=== PATIENT | female | born 1985 | race Caucasian/White ===

== ENCOUNTER 2016-08-10 11:03 | Emergency (ER) | payer OTHER ==
[2016-08-10 11:14] VITALS: BP 126/85
--- NOTE | 2016-08-10 12:07 | UC ---
Skin Complaint HPI - HPI Summary HPI Summary: TICK BITE ON RIGHT UPPER THIGH SINCE YESTERDAY, RASH DEVELOPED WELL BURN - History of Current Complaint Chief Complaint: UCLowerExtremity Time Seen by Provider: 08/10/16 11:09 Stated Complaint: LEG COMPLAINT Hx Obtained From: Patient Hx Last Menstrual Period: 08/06/16 Onset/Duration: Sudden Onset, Lasting Days, Still Present Skin Exposure Onset/Duration: Days Ago Onset Severity: Mild Current Severity: Mild Location: Discrete - RIGHT UPPER THIGH Character: Redness Aggravating: Nothing Alleviating: Nothing Associated Signs & Symptoms: Positive: Rash. Negative: Fever, Tenderness, Red Streaks Related History: Possible Reaction to: Insect - Allergy/Home Medications Allergies/Adverse Reactions: Allergies Allergy/AdvReac Type Severity Reaction Status Date / Time No Known Allergies Allergy Verified 08/10/16 11:14 Review of Systems Constitutional: Negative Skin: Rash Eyes: Negative ENT: Negative Respiratory: Negative Cardiovascular: Negative Gastrointestinal: Negative Genitourinary: Negative Motor: Negative Neurovascular: Negative Musculoskeletal: Negative Neurological: Negative Psychological: Negative All Other Systems Reviewed And Are Negative: Yes PMH/Surg Hx/FS Hx/Imm Hx Previously Healthy: Yes Endocrine History Of: Denies: Diabetes, Thyroid Disease, Hyperthyroidism, Hypothyroidism, Dyslipidemia Cardiovascular History Of: Denies: Cardiac Disorders, Hypertension, Pacemaker/ICD, Myocardial Infarction , Congestive Heart Failure, Atrial Fibrillation, Deep Vein Thrombosis, Bleeding Disorders Respiratory History Of: Denies: COPD, Asthma, Bronchitis, Pneumonia, Pulmonary Embolism GI/ History Of: Denies: Gastroesophageal Reflux, Ulcer, Gastrointestinal Bleed, Gall Bladder Disease, Kidney Stones, Diverticulitis, Renal Disease, Urosepsis Neurological History Of: Denies: TIA, CVA, Dementia, Seizures, Migraine Psychological History Of: Reports: Anxiety, Depression - ON MEDICATION, Bipolar Disorder Denies: Schizophrenia, Post Traumatic Stress Disorder Cancer History Of: Denies: Lung Cancer, Colorectal Cancer, Breast Cancer, Prostate Cancer, Cervical Cancer Other History Of: Negative For: HIV, Hepatitis B, Hepatitis C, Anticoagulant Therapy - Surgical History Surgical History: Yes Surgery Procedure, Year, and Place: 2 DAYS OLD-REMOVED EXTRA THUMB. 2009 EMERGENCY D&C, [facility] – [place]. TUbal ligation - Family History Known Family History: Positive: None, Unknown, Other - Negative malignant hyperthermia, negative adverse anesthesia reaction Negative: Cardiac Disease, Hypertension - Social History Occupation: Employed Full-time Lives: With Family Alcohol Use: Occasionally Alcohol Amount: Weekends, unk amount Substance Use Type: None Smoking Status (MU): Current Every Day Smoker Type: Cigarettes Amount Used/How Often: 1/2 PPD Physical Exam Triage Information Reviewed: Yes Appearance: Well-Appearing Vital Signs: Initial Vital Signs Temp 99.9 F 08/10/16 11:08 Pulse 103 08/10/16 11:08 Resp 18 08/10/16 11:08 BP 126/85 08/10/16 11:08 Pulse Ox 100 08/10/16 11:08 Vital Signs Reviewed: Yes Eye Exam: Normal ENT Exam: Normal ENT: Positive: Normal ENT inspection, Hearing grossly normal, TMs normal Dental Exam: Normal Neck exam: Normal Respiratory Exam: Normal Respiratory: Positive: Chest non-tender, Lungs clear, Normal breath sounds, No respiratory distress, No accessory muscle use Cardiovascular Exam: Normal Cardiovascular: Positive: RRR, No Murmur, Pulses Normal Abdominal Exam: Normal Musculoskeletal Exam: Normal Musculoskeletal: Positive: Strength Intact, ROM Intact Neurological Exam: Normal Psychological Exam: Normal Skin: Positive: rashes - ERRETHEMA RIGHT SUPERIOR THIGH Course/Dx - Differential Diagnoses - Skin Complaint Differential Diagnoses: Impetigo, Tick Born Illness, Tinea - Diagnoses Provider Diagnoses: TICK BITE PROPHYLAXIS Discharge - Discharge Plan Condition: Stable Disposition: HOME Prescriptions: DOXYcycline CAP(*) [DOXYcycline 100MG CAP(*)] 100 mg PO ONCE #2 cap Patient Education Materials: Tick Bite (ED) Forms: *Work Release Referrals: Alexandrea Luz MD [Primary Care Provider] -
== END 2016-08-10 12:02 | disposition home or self-care (01) ==
LOC: UCEAST 11:03
DX: S70.361A Insect bite (nonvenomous), right thigh, initial encounter (principal); W57.XXXA Bitten or stung by nonvenomous insect and other nonvenomous arthropods, initial encounter; F17.210 Nicotine dependence, cigarettes, uncomplicated
CPT/HCPCS: 99211; G0463

== ENCOUNTER → 2016-09-12 12:00 | Emergency (ER) | payer OTHER ==
[2016-09-12 12:09] VITALS: BP 136/87
--- NOTE | 2016-09-12 13:47 | ED ---
Luis Carpenter Rebecca, scribed for Yun Rausch MD on 09/12/16 at 1312 . Throat Pain/Nasal Congestion - HPI Summary HPI Summary: Pt is a 31 y/o F who presents to ED c/o R eyelid swelling and irritation. Sx began suddenly at 0800 when the pt woke up and have been constant since onset. Pt c/o swelling and pruritis of the right eyelid and pain in the tear duct. Associated pain is currently moderate, ranked 5/10. Sx aggravated and alleviated by nothing. Denies eye discharge, FB sensation. Reports she was fishing yesterday and personally handling fish. - History of Current Complaint Chief Complaint: EDEyeProblem Time Seen by Provider: 09/12/16 13:00 Hx Obtained From: Patient Onset/Duration: Sudden Onset, Still Present Severity: Moderate Associated Signs And Symptoms: Positive: Negative. Negative: FB Sensation - Allergies/Home Medications Allergies/Adverse Reactions: Allergies Allergy/AdvReac Type Severity Reaction Status Date / Time No Known Allergies Allergy Verified 08/10/16 11:14 PMH/Surg Hx/FS Hx/Imm Hx Endocrine/Hematology History: Reports: Hx Anemia - ANEMIC DURING -FINE RECENTLY Denies: Hx Anticoagulant Therapy, Hx Diabetes, Hx Thyroid Disease Cardiovascular History: Denies: Hx Congestive Heart Failure, Hx Deep Vein Thrombosis, Hx Hypertension , Hx Myocardial Infarction, Hx Pacemaker/ICD Respiratory History: Denies: Hx Asthma, Hx Chronic Obstructive Pulmonary Disease (COPD), Hx Lung Cancer, Hx Pneumonia, Hx Pulmonary Embolism GI History: Denies: Hx Gall Bladder Disease, Hx Gastrointestinal Bleed, Hx Ulcer, Hx Urosepsis History: Denies: Hx Kidney Stones, Hx Renal Disease, Other Problems/Disorders Sensory History: Denies: Hx Contacts or Glasses, Hx Hearing Aid Opthamlomology History: Denies: Hx Contacts or Glasses Neurological History: Denies: Hx Dementia, Hx Migraine, Hx Seizures, Hx Transient Ischemic Attacks (TIA) Psychiatric History: Reports: Hx Anxiety, Hx Depression - ON MEDICATION, Hx Bipolar Disorder, Hx Substance Abuse, Other Psychiatric Issues/Disorders - bipolar, substance abuse Denies: Hx Schizophrenia - Surgical History Surgery Procedure, Year, and Place: 2 DAYS OLD-REMOVED EXTRA THUMB. 2009 [place] [facility] [place] TUbal [place] Hx Anesthesia Reactions: No - Immunization History Date of Tetanus Vaccine: Unk Date of Influenza Vaccine: None Infectious Disease History: No Infectious Disease History: Reports: History Other Infectious Disease - VIRAL MENINGITIS Denies: Hx Clostridium Difficile, Hx Hepatitis, Hx Human Immunodeficiency Virus (HIV), Hx of Known/Suspected MRSA, Hx Shingles, Hx Tuberculosis, Hx Known/ Suspected VRE, Traveled Outside the [place] in Last 30 Days - Family History Known Family History: Positive: Other - Negative malignant hyperthermia, negative adverse anesthesia reaction Negative: Cardiac Disease, Hypertension, Diabetes - Social History Lives: With Family Alcohol Use: Occasionally Alcohol Amount: Weekends, unk amount Hx Substance Use: No Substance Use Type: Reports: None Hx Tobacco Use: Yes Smoking Status (MU): Current Every Day Smoker Type: Cigarettes Amount Used/How Often: 1/2 PPD Review of Systems Positive: Other - Moderate pain in the R tear duct (/10); Denies FB sensation. Negative: Drainage Positive: Other - R eyelid swelling and pruritis All Other Systems Reviewed And Are Negative: Yes Physical Exam - Summary Physical Exam Summary: General: Well appearing, no pain distress Skin: Warm, Skin Color Reflects Adequate Perfusion, Dry Eyes: EOMI, TITO, Little punctate region on the lateral region of the R eye ENT: Pharynx normal, TMs normal Neck: Supple, nontender Respiratory: CTA, breath sounds present, no rhonchi, no wheezes, no rales Cardiovascular: RRR, no murmur, no rub, no gallop Abdomen: Soft, nontender, Non-distended, no guarding, no rebound Bowel: Present Musculoskeletal: SIMRAN, No edema Neuro: Sensory/motor intact, A&Ox3, CN intact 2-12 Psych: Affect/mood appropriate Triage Information Reviewed: Yes Vital Signs On Initial Exam: Initial Vitals Temp Pulse Resp BP Pulse Ox 97.8 F 97 20 136/87 100 09/12/16 12:07 09/12/16 12:07 09/12/16 12:07 09/12/16 12:07 09/12/16 12:07 Vital Signs Reviewed: Yes Diagnostics - Vital Signs Vital Signs Temp Pulse Resp BP Pulse Ox 09/12/16 12:09 98.0 F 100 20 136/87 100 09/12/16 12:07 97.8 F 97 20 136/87 100 - Laboratory Lab Statement: Any lab studies that have been ordered have been reviewed, and results considered in the medical decision making process. EENT Course/Dx - Course Assessment/Plan: 31 yo female with right upper lid itching (small punctate lesion seen on bottom edge of lid) extra ocular muscles intact flourescein exam done without corneal abrasion. Pt given benadryl, there is mild swelling to lid , pt informed that lid edema may increase and that if she can't move her eyes she needs to return. Pt has decreased access to care and so augmentin was prescribed in case edema and erythema increase and this is an early periorbital cellulitis - Diagnoses Provider Diagnoses: Insect bite Discharge - Discharge Plan Condition: Stable Disposition: HOME Prescriptions: Amoxicillin/Clavulanate TAB* [Augmentin TAB 875*] 875 mg PO BID #14 tab diPHENhydraMINE PO* [Benadryl PO 50 MG CAP*] 50 mg PO Q6H PRN #20 cap PRN Reason: Itching Patient Education Materials: Insect Bite or Sting (ED) Forms: *Work Release Referrals: Alexandrea Luz MD [Primary Care Provider] - 2 Days The documentation as recorded by the Luis diaz Rebecca accurately reflects the service I personally performed and the decisions made by , Yun Rausch MD.
== END | disposition home or self-care (01) ==
LOC: ED 12:00
DX: S00.86XA Insect bite (nonvenomous) of other part of head, initial encounter (principal); W57.XXXA Bitten or stung by nonvenomous insect and other nonvenomous arthropods, initial encounter; Y93.9 Activity, unspecified; Y92.9 Unspecified place or not applicable; Y99.9 Unspecified external cause status
CPT/HCPCS: 99282

== ENCOUNTER 2016-10-16 19:44 | Emergency (ER) | payer SELFPAY ==
[2016-10-16 19:51] VITALS: BP 122/77
[2016-10-16] MEDS ORDERED: Ibuprofen TAB* 600 MG PO ONE (20:44)
--- NOTE | 2016-10-16 20:57 | UC ---
Lower Extremity/Ankle HPI - HPI Summary HPI Summary: 31 yo female states she was drinking and kicked a wall about 3 hours ago pain right foot and miller hx r 4th MT fx about a yr ago - History of Current Complaint Chief Complaint: UCLowerExtremity Stated Complaint: TOE OR FOOT INJURY Time Seen by Provider: 10/16/16 20:41 Hx Obtained From: Patient Hx Last Menstrual Period: 3 WEEKS AGO Onset/Duration: Sudden Onset, Lasting Hours Severity Initially: Moderate Severity Currently: Moderate Pain Intensity: 6 Pain Scale Used: 0-10 Numeric Aggravating Factor(s): Standing, Ambulation Alleviating Factor(s): Rest Able to Bear Weight: Yes - Allergies/Home Medications Allergies/Adverse Reactions: Allergies Allergy/AdvReac Type Severity Reaction Status Date / Time No Known Allergies Allergy Verified 10/16/16 19:51 Home Medications: Home Medications Ibuprofen TAB* [Advil TAB*] 400 mg PO PRN 10/16/16 [History] PMH/Surg Hx/FS Hx/Imm Hx Previously Healthy: Yes Other History Of: Negative For: HIV, Hepatitis B, Hepatitis C, Anticoagulant Therapy - Surgical History Surgical History: Yes Surgery Procedure, Year, and Place: 2 DAYS OLD-REMOVED EXTRA THUMB. 2009 EMERGENCY D&C, [facility] [place] TUbal ligation - Family History Known Family History: Positive: Other - Negative malignant hyperthermia, negative adverse anesthesia reaction Negative: Cardiac Disease, Hypertension, Diabetes - Social History Alcohol Use: Occasionally Alcohol Amount: Weekends, unk amount Substance Use Type: None Smoking Status (MU): Current Every Day Smoker Type: Cigarettes Amount Used/How Often: 1/2 PPD Review of Systems Constitutional: Negative Skin: Negative Eyes: Negative ENT: Negative Respiratory: Negative Cardiovascular: Negative Gastrointestinal: Negative Genitourinary: Negative Motor: Negative Neurovascular: Negative Musculoskeletal: Arthralgia Neurological: Negative Psychological: Negative All Other Systems Reviewed And Are Negative: Yes Physical Exam Triage Information Reviewed: Yes Appearance: Well-Appearing, No Pain Distress, Well-Nourished Vital Signs: Initial Vital Signs Temp 98.6 F 10/16/16 19:46 Pulse 115 10/16/16 19:46 Resp 16 10/16/16 19:46 BP 122/77 10/16/16 19:46 Pulse Ox 100 10/16/16 19:46 Eye Exam: Normal ENT: Positive: Hearing grossly normal. Negative: Pharyngeal erythema, Nasal congestion, Nasal drainage, Trismus, Muffled/hoarse voice Dental: Negative: Abscess @ Neck: Positive: Supple, Nontender Respiratory: Positive: Lungs clear, Normal breath sounds, No respiratory distress, No accessory muscle use Cardiovascular: Positive: RRR, No Murmur Musculoskeletal: Positive: ROM Intact, Other: - antalgic gait/see images Neurological: Positive: Alert Psychological Exam: Normal Skin Exam: Normal Lower Extremity Course/Dx - Differential Dx/Diagnosis Provider Diagnoses: RIGHT FOOT CONTUSION. RIGHT LEG STRAIN Discharge - Discharge Plan Condition: Stable Disposition: HOME Patient Education Materials: Foot Contusion (ED) Forms: *Work Release Referrals: Alexandrea Luz MD [Primary Care Provider] - 4 Days Additional Instructions: REST ELEVATE ICE CAM BOOT CRUTCHES RECHECK LATER THIS WEEK IF NOT IMPROVED ADVIL FOR PAIN Images Feet (Multiple View): 1 - tender 3/4/5 MTP joints 2 - tender here 3 - tender 4 - tender
--- NOTE | 2016-10-16 21:30 | RAD ---
INDICATION: Right lower leg injury. TECHNIQUE: 2 views of the right lower leg were obtained. FINDINGS: The bones are normal alignment. No fracture is seen. IMPRESSION: NO EVIDENCE OF FRACTURE.
--- NOTE | 2016-10-16 21:32 | RAD ---
INDICATION: Right foot injury. TECHNIQUE: 3 views of the right foot were obtained. FINDINGS: There is soft tissue swelling over the dorsal aspect of the foot. No fracture is seen. Joint spaces appear maintained. IMPRESSION: SOFT TISSUE SWELLING, NO FRACTURE IS SEEN.
== END 2016-10-16 21:58 | disposition home or self-care (01) ==
LOC: UCEAST 19:44
DX: S90.31XA Contusion of right foot, initial encounter (principal); S86.911A Strain of unspecified muscle(s) and tendon(s) at lower leg level, right leg, initial encounter; W22.09XA Striking against other stationary object, initial encounter; Y93.9 Activity, unspecified; Y92.9 Unspecified place or not applicable; F17.210 Nicotine dependence, cigarettes, uncomplicated
CPT/HCPCS: 99213; A9270-GY; G0463

== ENCOUNTER 2017-01-09 11:55 | Emergency (ER) | payer SELFPAY ==
[2017-01-09 12:43] VITALS: BP 124/69
--- NOTE | 2017-01-09 13:18 | UC ---
Throat Pain/Nasal Ricardo HPI - HPI Summary HPI Summary: L-sided ST radiating to ear with chills, fatigue, and malaise starting this morning. Was around step son in the last couple days. No know fevers or vomiting. - History of Current Complaint Hx Obtained From: Patient Hx Last Menstrual Period: 2 weeks ago ?: No Onset/Duration: Gradual Onset, Lasting Hours Severity: Moderate Cough: None Associated Signs & Symptoms: Negative: Hoarseness, Nasal Discharge <Margareth Ortiz - Last Filed: 01/09/17 13:13> <Bria Edwards - Last Filed: 01/09/17 13:28> - History of Current Complaint Chief Complaint: UCGeneralIllness Stated Complaint: SWOLLEN GLANDS And aches Time Seen by Provider: 01/09/17 12:54 - Allergies/Home Medications Allergies/Adverse Reactions: Allergies Allergy/AdvReac Type Severity Reaction Status Date / Time No Known Allergies Allergy Verified 01/09/17 12:43 PMH/Surg Hx/FS Hx/Imm Hx Previously Healthy: Yes Other History Of: Negative For: HIV, Hepatitis B, Hepatitis C, Anticoagulant Therapy - Surgical History Surgical History: Yes Surgery Procedure, Year, and Place: 2 DAYS OLD-REMOVED EXTRA THUMB. 2009 EMERGENCY D[place], [facility] [place] TUbal [place] - Family History Known Family History: Positive: Other - Negative malignant hyperthermia, negative adverse anesthesia reaction Negative: Cardiac Disease, Hypertension, Diabetes - Social History Lives: With Family Alcohol Use: Occasionally Alcohol Amount: Weekends, unk amount Substance Use Type: None Smoking Status (MU): Current Every Day Smoker Type: Cigarettes Amount Used/How Often: 1/2ppd Length of Time of Smoking/Using Tobacco: 18 years Have You Smoked in the Last Year: Yes <Margareth Ortiz - Last Filed: 01/09/17 13:13> Review of Systems Constitutional: Chills, Fatigue Skin: Negative Eyes: Negative ENT: Sore Throat Respiratory: Negative Cardiovascular: Negative Gastrointestinal: Negative Genitourinary: Negative Motor: Negative Neurovascular: Negative Musculoskeletal: Negative Neurological: Negative Psychological: Negative Is Patient Immunocompromised?: No All Other Systems Reviewed And Are Negative: Yes <Margareth Ortiz - Last Filed: 01/09/17 13:13> Physical Exam Triage Information Reviewed: Yes Appearance: Well-Nourished, Pain Distress - mild Vital Signs: Initial Vital Signs Temp 97.8 F 09/18/17 12:37 Pulse 95 01/09/17 12:37 Resp 18 01/09/17 12:37 BP 124/69 01/09/17 12:37 Pulse Ox 100 01/09/17 12:37 Vital Signs Reviewed: Yes Eye Exam: Normal Eyes: Positive: Conjunctiva Clear ENT: Positive: Hearing grossly normal, Pharyngeal erythema - L-sided, TMs normal Dental Exam: Normal Neck: Positive: Supple, Enlarged Nodes @ - L tonsillar Respiratory Exam: Normal Respiratory: Positive: Chest non-tender, Lungs clear, Normal breath sounds, No respiratory distress, No accessory muscle use Cardiovascular Exam: Normal Cardiovascular: Positive: RRR, No Murmur Musculoskeletal Exam: Normal Neurological Exam: Normal Neurological: Positive: Alert Psychological Exam: Normal Skin Exam: Normal <Margareth Ortiz - Last Filed: 01/09/17 13:13> Vital Signs: Initial Vital Signs Temp 97.8 F 01/09/17 12:37 Pulse 95 01/09/17 12:37 Resp 18 01/09/17 12:37 BP 124/69 01/09/17 12:37 Pulse Ox 100 01/09/17 12:37 <Bria Edwards - Last Filed: 01/09/17 13:28> Throat Pain/Nasal Course/Dx - Differential Dx/Diagnosis Provider Diagnoses: strep throat <Margareth Ortiz - Last Filed: 01/09/17 13:13> Discharge <Margareth Ortiz - Last Filed: 01/09/17 13:13> <Bria Edwards - Last Filed: 01/09/17 13:28> - Discharge Plan Condition: Stable Disposition: HOME Prescriptions: Amoxicillin PO (*) [Amoxicillin 400 MG/5 ML SUSP*] 800 mg PO BID #200 ml Patient Education Materials: Strep Throat (ED) Referrals: Alexandrea Luz MD [Primary Care Provider] - Additional Instructions: Call or return if you have significant worsening or if you stop being able to breathe or swallow normally. Attestation Statement User Type: Provider - I was available for consult. This patient was seen by the [facility]. The patient was not presented to, seen by, or examined by me. -Simeonj <Bria Edwards - Last Filed: 01/09/17 13:28>
== END 2017-01-09 13:17 | disposition home or self-care (01) ==
LOC: UCEAST 11:55
DX: J02.0 Streptococcal pharyngitis (principal); F17.210 Nicotine dependence, cigarettes, uncomplicated
CPT/HCPCS: 87651; 99212; G0463

== ENCOUNTER 2017-04-06 14:27 | Emergency (ER) | payer BC ==
[2017-04-06 15:59] LABS: Hematocrit 42 % (35-47); Hemoglobin 14.4 g/dl (12.0-16.0); Mean Corpuscular HGB Conc 34 g/dl (31-36); Mean Corpuscular Hemoglobin 33 pg (27-31); Mean Corpuscular Volume 95 fL (80-97); Mean Platelet Volume 7 um3 (7.4-10.4); Red Cell Distribution Width 13 % (10.5-15); White Blood Count 3.4 10^3/ul (3.5-10.8)
[2017-04-06 16:00] LABS: Add Diff/Slide Review? Slide Review Added; Comments Flag Yes
[2017-04-06 16:11] LABS: ALT 16 U/L (7-52); AST 27 U/L (13-39); Albumin 4.3 g/dL (3.2-5.2); Alkaline Phosphatase 45 U/L (34-104); Anion Gap 7 mmol/L (2-11); BUN/Creatinine Ratio 11.8 (8-20); Blood Urea Nitrogen 9 mg/dL (6-24); CO2 Carbon Dioxide 26 mmol/L (22-32); Chloride 101 mmol/L (101-111); EGFR African American 115.7 (>60); Globulin 3.1 g/dL (2-4); Glucose 106 mg/dL (70-100); Lipase 14 U/L (11.0-82.0); Potassium 2.8 mmol/L (3.5-5.0); Sodium 134 mmol/L (133-145); Total Protein 7.4 g/dL (6.4-8.9)
[2017-04-06] MEDS ORDERED: Potassium Chloride LIQUID* 20 MEQ PACKET PO ONE ×2 (17:34→17:57)
[2017-04-06] MEDS ORDERED: Pantoprazole IV* 40 MG IV ONE (17:39)
[2017-04-06] MEDS ORDERED: NS 0.9% 1000 ML* 1,000 ML IV SCH (17:45)
[2017-04-06 17:59] LABS: FIO2 10
[2017-04-06 18:04] LABS: PCO2 Arterial 27 mmHg (35-45)
[2017-04-06 18:20] LABS: Magnesium 1.7 mg/dL (1.9-2.7)
[2017-04-06 20:00] LABS: Urine Bacteria Absent (Absent); Urine Bilirubin Negative (Negative); Urine Glucose Negative (Negative); Urine Nitrite Negative (Negative)
[2017-04-06 20:59] LABS: PCO2 Arterial 22 mmHg (35-45)
[2017-04-06] MEDS ORDERED: Acetaminophen TAB* 325 MG ONE (22:14)
[2017-04-06] MEDS ORDERED: Acetaminophen TAB* 325 MG PO ONE (22:17)
[2017-04-06 22:40] VITALS: BP 130/76
--- NOTE | 2017-04-07 01:03 | ED ---
Darin Carpenter Angela, scribed for Daniel Mc on 04/06/17 at 2016 . Progress - Progress Note Progress Note: This pt was signed out by Dr. Cruz, pending disposition, awaiting repeat CO and potassium levels. Pt is a 31 y/o female presenting to [facility] for sudden onset of headache, nausea and vomiting starting yesterday. Pt was at work when it started and has been vomiting intermittently ever since. Pt will be discharged to home, in stable condition, with a diagnosis of carbon monoxide poisoning and headache. Re-Evaluation - Re-Evaluation First Eval Re-Evaluation Time: 22:13 Comment: I reviewed the lab results with the pt. Course/Dx - Course Course Of Treatment: Pt is a 31 y/o female presenting to [facility] for sudden onset of headache, nausea and vomiting starting yesterday. Pt was at work when it started and has been vomiting intermittently ever since. This pt was signed out by Dr. Cruz. Pt's repeat carbon monoxide level is less than 4. I reviewed the lab results with the pt. She will be discharged. Pt understands and agrees. Pt will be discharged to home, in stable condition, with a diagnosis of carbon monoxide poisoning and headache. - Diagnoses Provider Diagnoses: Carbon monoxide poisoning, Headache The documentation as recorded by the Darin diaz Angela accurately reflects the service I personally performed and the decisions made by me, Daniel Mc.
== END 2017-04-06 22:45 | disposition home or self-care (01) ==
LOC: ED 14:27
DX: T58.91XA Toxic effect of carbon monoxide from unspecified source, accidental (unintentional), initial encounter (principal); R51 Headache
CPT/HCPCS: 36415; 36600; 80053; 81003; 81015; 82375; 82803; 83690; 83735; 84132; 84702; 85025; 86141; 87493; 96374; 96375; 99284; A9270-GY

== ENCOUNTER 2017-09-02 01:20 | Emergency (ER) | payer SELFPAY ==
[2017-09-02 02:36] LABS: ABS Basophils 0 10^3/ul (0-0.2); ABS Eosinophils 0.1 10^3/ul (0-0.6); ABS Lymphocytes 2.1 10^3/ul (1.0-4.8); ABS Monocytes 0.5 10^3/ul (0-0.8); ABS Nucleated RBC 0 10^3/ul; Eosinophil % 0.9 % (0-6); Hematocrit 35 % (35-47); Hemoglobin 12.1 g/dl (12.0-16.0); Mean Corpuscular HGB Conc 35 g/dl (31-36); Mean Corpuscular Hemoglobin 32 pg (27-31); Mean Corpuscular Volume 92 fL (80-97); Mean Platelet Volume 7.7 um3 (7.4-10.4); Nucleated Red Blood Cells % 0; Platelet Count 255 10^3/ul (150-450); Red Blood Count 3.79 10^6/ul (4.0-5.4); Red Cell Distribution Width 13 % (10.5-15); White Blood Count 6.8 10^3/ul (3.5-10.8)
[2017-09-02] MEDS ORDERED: NS 0.9% 1000 ML* 1,000 ML IV ONE (02:59)
[2017-09-02] MEDS ORDERED: Ketorolac INJ* 30 MG/ML 1 ML VIAL IV PUSH ONE (03:59)
[2017-09-02 06:14] VITALS: BP 125/73
--- NOTE | 2017-09-02 06:29 | ED ---
Allan Carpenter Jennifer, scribed for Jakob Ramirez MD on 09/02/17 at 0238 . HPI Chest Pain - HPI Summary HPI Summary: The patient is a 32 year old female who presents with sudden onset chest pain for one hour. The patient reports it felt like there were stabbing needles down both arms and she isnt able to catch her breath. She complains of nausea, cough , and her entire body feeling like jello. Her chest pain is a constant 8/10 and radiates from the front to the back. She adds she can feel her heart beating in my eyeballs. Deep breaths worsen the pain. The patient states she usually gets chest pain when she runs. She had a previous stress test 1-2 years ago. The patient denies history of blood clots and taking control. - History of Current Complaint Chief Complaint: EDChestPainROMI Time Seen by Provider: 09/02/17 02:01 Hx Obtained From: Patient Hx Last Menstrual Period: 2 weeks ago Onset/Duration: Started Hours Ago - 1, Still Present Timing: Constant Initial Severity: Severe Current Severity: Severe Pain Intensity: 8 Pain Scale Used: 0-10 Numeric Chest Pain Location: Mid Sternal Chest Pain Radiates: Yes Chest Pain Radiates To:: Back Character: Other: - chest pain, stabbing needles down both arms, shortness of breath, nausea, cough, "body feels like jello" Aggravating Factor(s): Deep Breaths Alleviating Factor(s): Nothing Associated Signs and Symptoms: Positive: Other: - chest pain, stabbing needles down both arms, shortness of breath, nausea, cough, "body feels like jello" - Allergy/Home Medications Allergies/Adverse Reactions: Allergies Allergy/AdvReac Type Severity Reaction Status Date / Time No Known Allergies Allergy Verified 01/09/17 12:43 Home Medications: Home Medications NK [No Home Medications Reported] 09/02/17 [History Confirmed 09/02/17] PMH/Surg Hx/FS Hx/Imm Hx Endocrine/Hematology History: Reports: Hx Anemia - ANEMIC DURING -FINE RECENTLY Denies: Hx Anticoagulant Therapy, Hx Diabetes, Hx Thyroid Disease Cardiovascular History: Denies: Hx Congestive Heart Failure, Hx Deep Vein Thrombosis, Hx Hypertension , Hx Myocardial Infarction, Hx Pacemaker/ICD Respiratory History: Denies: Hx Asthma, Hx Chronic Obstructive Pulmonary Disease (COPD), Hx Lung Cancer, Hx Pneumonia, Hx Pulmonary Embolism GI History: Denies: Hx Gall Bladder Disease, Hx Gastrointestinal Bleed, Hx Ulcer, Hx Urosepsis History: Denies: Hx Kidney Stones, Hx Renal Disease, Other Problems/Disorders Sensory History: Denies: Hx Contacts or Glasses, Hx Hearing Aid Opthamlomology History: Denies: Hx Contacts or Glasses Neurological History: Denies: Hx Dementia, Hx Migraine, Hx Seizures, Hx Transient Ischemic Attacks (TIA) Psychiatric History: Reports: Hx Anxiety, Hx Depression - ON MEDICATION, Hx Bipolar Disorder, Hx Substance Abuse, Other Psychiatric Issues/Disorders - bipolar, substance abuse Denies: Hx Schizophrenia - Surgical History Surgery Procedure, Year, and Place: 2 DAYS OLD-REMOVED EXTRA THUMB. 2009 EMERGENCY D&C, [facility] – [place]. TUbal ligation Hx Anesthesia Reactions: No - Immunization History Date of Tetanus Vaccine: Unk Date of Influenza Vaccine: None Infectious Disease History: No Infectious Disease History: Reports: History Other Infectious Disease - VIRAL MENINGITIS Denies: Hx Clostridium Difficile, Hx Hepatitis, Hx Human Immunodeficiency Virus (HIV), Hx of Known/Suspected MRSA, Hx Shingles, Hx Tuberculosis, Hx Known/ Suspected VRE, Hx Known/Suspected VRSA, Traveled Outside the [place] in Last 30 Days - Family History Known Family History: Positive: Cardiac Disease - Grandfather of [place] in 60s , Other - Negative malignant hyperthermia, negative adverse anesthesia reaction Negative: Hypertension, Diabetes - Social History Alcohol Use: Occasionally Alcohol Amount: Weekends, unk amount Hx Substance Use: No Substance Use Type: Reports: None Hx Tobacco Use: Yes Smoking Status (MU): Current Every Day Smoker Type: Cigarettes Amount Used/How Often: 1/2ppd Length of Time of Smoking/Using Tobacco: 18 years Have You Smoked in the Last Year: Yes Review of Systems Positive: Chest Pain Positive: Shortness Of Breath, Cough Positive: Nausea Positive: Other - body "feels like jello" Neurological: Other - stabbing needles down both arms All Other Systems Reviewed And Are Negative: Yes Physical Exam - Summary Physical Exam Summary: GENERAL: ~Patient is a well developed and nourished F who is lying comfortable in the stretcher. ~Patient is not in any acute respiratory distress. HEAD AND FACE: Normocephalic EYES: PERRLA, EOMI x 2. EARS: Hearing grossly intact. MOUTH: Oropharynx within normal limits. NECK: Supple, trachea is midline, no adenopathy, no JVD, no carotid bruit. CHEST: Symmetric, tender to palpation in anterior mid sternal area. LUNGS: Clear to auscultation bilaterally. No wheezing or crackles. CVS: Regular rate and rhythm, S1 and S2 present, no murmurs or gallops appreciated. ABDOMEN: Soft, non-tender. Bowel sounds are normal. No abdominal abnormal pulsations. EXTREMITIES: Full ROM in all major joints, no edema, no cyanosis or clubbing. NEURO: Alert and oriented x 3. No acute neurological deficits. Speech is normal and follows commands. SKIN: Dry and warm Triage Information Reviewed: Yes Vital Signs On Initial Exam: Initial Vitals Temp Pulse Resp BP Pulse Ox 97.4 F 108 20 114/77 100 09/02/17 01:28 09/02/17 01:28 09/02/17 01:28 09/02/17 01:28 09/02/17 01:28 Vital Signs Reviewed: Yes Diagnostics - Vital Signs Vital Signs Temp Pulse Resp BP Pulse Ox 09/02/17 01:53 101 18 136/94 99 09/02/17 01:52 105 20 99 09/02/17 01:28 97.4 F 108 20 114/77 100 - Laboratory Result Diagrams: 09/02/17 02:28 09/02/17 02:28 Lab Statement: Any lab studies that have been ordered have been reviewed, and results considered in the medical decision making process. - Radiology CXR Xray Interpretation: No Acute Changes - No acute process. Radiology Interpretation Completed By: ED Physician - EKG 0138 Cardiac Rate: NL EKG Rhythm: Sinus Rhythm - 98 bpm 0619 Cardiac Rate: NL EKG Rhythm: Sinus Rhythm - 84 BPM Chest Pain Course/Dx - Course Course Of Treatment: The patient is a 32 y/o F who presents with chest pain. Her workup was remarkable for elevated lactic acid at 2.9. First troponin was negative. Second troponin was negative. D-dimer was negative. CXR shows no acute process. EKG1 showed NSR 98 bpm and EKG2 showed NSR 84 bpm. Lactic acid normalized to 1.0. The patient is diagnosed with chest pain and instructed to follow up with cardiology. - Diagnoses Provider Diagnoses: Chest pain Discharge - Sign-Out/Discharge Documenting (check all that apply): Discharge/Admit/Transfer - Discharge Plan Condition: Stable Disposition: HOME Patient Education Materials: Chest Pain (ED) Referrals: Olman Baron MD [Medical Doctor] - Additional Instructions: Follow up with Dr. Baron, cardiology, in three days. Return to the emergency department for any new or worsening symptoms. The documentation as recorded by the Allan diaz Jennifer accurately reflects the service I personally performed and the decisions made by , Jakob Ramirez MD.
--- NOTE | 2017-09-02 08:38 | RAD ---
Indication: Chest pain. 2 views of the chest including dual energy PA views demonstrates no mediastinal shift. Heart is of normal size and configuration. Lung mariano are clear. When compared to previous exam of April 13, 2016 no significant change is noted. IMPRESSION: No active cardiopulmonary disease is noted.
== END 2017-09-02 06:50 | disposition home or self-care (01) ==
LOC: ED 01:20
DX: R07.9 Chest pain, unspecified (principal); F17.210 Nicotine dependence, cigarettes, uncomplicated; R11.0 Nausea; R06.02 Shortness of breath
CPT/HCPCS: 36415; 71046; 80053; 82553; 83605; 83880; 84484; 84702; 85025; 85379; 85730; 93005; 96361; 96374; 99283; J1885

== ENCOUNTER 2017-11-26 22:13 | Emergency (ER) | payer SELFPAY ==
[2017-11-26] MEDS ORDERED: Ibuprofen TAB* 400 MG PO ONE (22:43)
--- NOTE | 2017-11-26 22:58 | ED ---
Upper Extremity Pain - HPI Summary HPI Summary: Patient complains of right elbow pain, right wrist pain, right hand pain after fall from her board 2 hours ago. Denies any other pain or injury including head injury. Denies loss of sensation or function distally. Medical history is none. - History of Current Complaint Chief Complaint: EDExtremityUpper Stated Complaint: RT ARM INJURY Time Seen by Provider: 11/26/17 22:40 Hx Obtained From: Patient Hx Last Menstrual Period: 2 weeks ago Mechanism Of Injury: Fall From A Standing Position Onset/Duration: Started Hours Ago Timing: Constant Severity Initially: Moderate Severity Currently: Moderate Pain Location: Elbow, Wrist, Hand Character: Throbbing Aggravating Factor(s): Movement Alleviating Factor(s): Nothing Associated Signs & Symptoms: Positive: Bruising - Allergies/Home Medications Allergies/Adverse Reactions: Allergies Allergy/AdvReac Type Severity Reaction Status Date / Time No Known Allergies Allergy Verified 11/26/17 22:17 PMH/Surg Hx/FS Hx/Imm Hx Endocrine/Hematology History: Reports: Hx Anemia - ANEMIC DURING -FINE RECENTLY Denies: Hx Anticoagulant Therapy, Hx Diabetes, Hx Thyroid Disease Cardiovascular History: Denies: Hx Congestive Heart Failure, Hx Deep Vein Thrombosis, Hx Hypertension , Hx Myocardial Infarction, Hx Pacemaker/ICD Respiratory History: Denies: Hx Asthma, Hx Chronic Obstructive Pulmonary Disease (COPD), Hx Lung Cancer, Hx Pneumonia, Hx Pulmonary Embolism GI History: Denies: Hx Gall Bladder Disease, Hx Gastrointestinal Bleed, Hx Ulcer, Hx Urosepsis History: Denies: Hx Kidney Stones, Hx Renal Disease, Other Problems/Disorders Sensory History: Denies: Hx Contacts or Glasses, Hx Hearing Aid Opthamlomology History: Denies: Hx Contacts or Glasses Neurological History: Denies: Hx Dementia, Hx Migraine, Hx Seizures, Hx Transient Ischemic Attacks (TIA) Psychiatric History: Reports: Hx Anxiety, Hx Depression - ON MEDICATION, Hx Bipolar Disorder, Hx Substance Abuse, Other Psychiatric Issues/Disorders - bipolar, substance abuse Denies: Hx Schizophrenia - Surgical History Surgery Procedure, Year, and Place: 2 DAYS OLD-REMOVED EXTRA THUMB. 2009 EMERGENCY D&C, [facility] – [place]. TUbal ligation Hx Anesthesia Reactions: No - Immunization History Date of Tetanus Vaccine: Unk Date of Influenza Vaccine: None Infectious Disease History: No Infectious Disease History: Reports: History Other Infectious Disease - VIRAL MENINGITIS Denies: Hx Clostridium Difficile, Hx Hepatitis, Hx Human Immunodeficiency Virus (HIV), Hx of Known/Suspected MRSA, Hx Shingles, Hx Tuberculosis, Hx Known/ Suspected VRE, Hx Known/Suspected VRSA, Traveled Outside the US in Last 30 Days - Family History Known Family History: Positive: Cardiac Disease - Grandfather of [place] in 60s , Other - Negative malignant hyperthermia, negative adverse anesthesia reaction Negative: Hypertension, Diabetes - Social History Alcohol Use: Occasionally Alcohol Amount: some today Hx Substance Use: No Substance Use Type: Reports: None Hx Tobacco Use: Yes Smoking Status (MU): Light Every Day Tobacco Smoker Type: Cigarettes Amount Used/How Often: 1/2ppd Length of Time of Smoking/Using Tobacco: 18 years Have You Smoked in the Last Year: Yes Review of Systems Constitutional: Negative Eyes: Negative ENT: Negative Cardiovascular: Negative Respiratory: Negative Gastrointestinal: Negative Genitourinary: Negative Musculoskeletal: Other Skin: Other Neurological: Negative Psychological: Normal All Other Systems Reviewed And Are Negative: Yes Physical Exam - Summary Physical Exam Summary: PMS intact distally on right hand. No ecchymosis, swelling, deformity, erythema , extra warmth noted to right wrist, right elbow. Mild ecchymosis at base of right thumb. Normal range of motion right shoulder without pain. Patient will not flex right elbow or right wrist. Able to move fingers. Triage Information Reviewed: Yes Vital Signs On Initial Exam: Initial Vitals Temp Pulse Resp BP Pulse Ox 97.8 F 106 20 148/134 100 11/26/17 22:15 11/26/17 22:15 11/26/17 22:15 11/26/17 22:15 11/26/17 22:15 Vital Signs Reviewed: Yes Appearance: Positive: Well-Appearing Skin: Positive: Warm Head/Face: Positive: Normal Head/Face Inspection Eyes: Positive: Normal Neck: Positive: Supple Respiratory/Lung Sounds: Positive: Clear to Auscultation Cardiovascular: Positive: Normal Abdomen Description: Positive: Nontender Musculoskeletal: Positive: Normal Neurological: Positive: Normal Psychiatric: Positive: Normal AVPU Assessment: Alert - Jill Coma Scale Best Eye Response: 4 - Spontaneous Best Motor Response: 6 - Obeys Commands Best Verbal Response: 5 - Oriented Coma Scale Total: 15 Diagnostics - Vital Signs Vital Signs Temp Pulse Resp BP Pulse Ox 11/26/17 22:15 97.8 F 106 20 148/134 100 - Laboratory Lab Statement: Any lab studies that have been ordered have been reviewed, and results considered in the medical decision making process. - Radiology elbow Xray Interpretation: No Acute Changes Radiology Interpretation Completed By: ED Physician wrist Xray Interpretation: No Acute Changes Radiology Interpretation Completed By: ED Physician hand Xray Interpretation: No Acute Changes Radiology Interpretation Completed By: ED Physician Course/Dx - Course Course Of Treatment: Patient complains of right elbow pain, right wrist pain, right hand pain after fall from her board 2 hours ago. Denies any other pain or injury including head injury. Denies loss of sensation or function distally. Medical history is none. Physical exam: PMS intact distally on right hand. No ecchymosis, swelling, deformity, erythema, extra warmth noted to right wrist, right elbow. Mild ecchymosis at base of right thumb. Normal range of motion right shoulder without pain. Patient will not flex right elbow or right wrist. Able to move fingers. - Diagnoses Provider Diagnoses: Fall Discharge - Sign-Out/Discharge Documenting (check all that apply): Patient Departure - Discharge Plan Condition: Stable Disposition: HOME Patient Education Materials: Fall Prevention (ED) Referrals: Alexandrea Luz MD [Primary Care Provider] - Additional Instructions: Ice and ibuprofen for pain and swelling. Return to the ED for any new or worsening symptoms - Billing Disposition and Condition Condition: STABLE Disposition: Home
[2017-11-27 00:33] VITALS: BP 114/75
--- NOTE | 2017-11-27 07:31 | RAD ---
Indication: Right elbow injury. 3 views of the right elbow demonstrate no fracture or dislocation. No joint effusion is noted. IMPRESSION: No fracture of the right elbow is noted. R0
--- NOTE | 2017-11-27 07:32 | RAD ---
Indication: Right hand injury after fall 3 views of the right hand are reviewed. There is no fracture or dislocation. No other bone or joint abnormality is noted. IMPRESSION: No fracture of the right hand is noted. R0
--- NOTE | 2017-11-27 07:33 | RAD ---
Indication: Right wrist injury 3 views of the wrist demonstrates no fracture. No other bone or joint abnormality is identified. IMPRESSION: NO FRACTURE OF THE WRIST IS NOTED. R0
== END 2017-11-27 00:32 | disposition home or self-care (01) ==
LOC: ED 22:13
DX: M25.521 Pain in right elbow (principal); M25.531 Pain in right wrist; M79.641 Pain in right hand; F41.9 Anxiety disorder, unspecified; F32.9 Major depressive disorder, single episode, unspecified; Z82.49 Family history of ischemic heart disease and other diseases of the circulatory system; F17.210 Nicotine dependence, cigarettes, uncomplicated
CPT/HCPCS: 99282; A9270-GY

== ENCOUNTER 2018-03-08 10:50 | Inpatient (IN) | payer BC, MEDICAID ==
--- NOTE | 2018-03-08 11:05 | ED ---
Psychiatric Complaint - HPI Summary HPI Summary: This patient is a 32 year old F presenting to [facility] accompanied by a male with a chief complaint of a mental breakdown for the last four days. She states she has had thoughts of SI without a plan. She states she has bipolar disorder and had a poor weekend where her friend left her. She reports poor sleep and that she does not take medications. She also c/o of a silva. Pt is a smoker and does occasional drugs and etoh - History Of Current Complaint Chief Complaint: EDMentalHealth Time Seen by Provider: 03/08/18 10:59 Hx Obtained From: Patient Hx Last Menstrual Period: 2 weeks ago Onset/Duration: Lasting Days - 4, Still Present Timing: Constant Severity Initially: Moderate Severity Currently: Moderate Character: Depressed, Anxious Aggravating Factor(s): Recent Stress Related History: Positive For: Prior Psychiatric Issues Has Suicidal: Reports: Thoughts. Denies: With A Plan, Demonstrates Gesture Has Homicidal: Denies: Thoughts, With A Plan - Allergies/Home Medications Allergies/Adverse Reactions: Allergies Allergy/AdvReac Type Severity Reaction Status Date / Time No Known Allergies Allergy Verified 03/08/18 10:56 PMH/Surg Hx/FS Hx/Imm Hx Endocrine/Hematology History: Reports: Hx Anemia - ANEMIC DURING -FINE RECENTLY Denies: Hx Anticoagulant Therapy, Hx Diabetes, Hx Thyroid Disease Cardiovascular History: Denies: Hx Congestive Heart Failure, Hx Deep Vein Thrombosis, Hx Hypertension , Hx Myocardial Infarction, Hx Pacemaker/ICD Respiratory History: Denies: Hx Asthma, Hx Chronic Obstructive Pulmonary Disease (COPD), Hx Lung Cancer, Hx Pneumonia, Hx Pulmonary Embolism GI History: Denies: Hx Gall Bladder Disease, Hx Gastrointestinal Bleed, Hx Ulcer, Hx Urosepsis History: Denies: Hx Kidney Stones, Hx Renal Disease, Other Problems/Disorders Sensory History: Denies: Hx Contacts or Glasses, Hx Hearing Aid Opthamlomology History: Denies: Hx Contacts or Glasses Neurological History: Denies: Hx Dementia, Hx Migraine, Hx Seizures, Hx Transient Ischemic Attacks (TIA) Psychiatric History: Reports: Hx Anxiety, Hx Depression - ON MEDICATION, Hx Bipolar Disorder, Hx Substance Abuse, Other Psychiatric Issues/Disorders - bipolar, substance abuse Denies: Hx Schizophrenia - Surgical History Surgery Procedure, Year, and Place: 2 DAYS OLD-REMOVED EXTRA THUMB. 2009 EMERGENCY D&C, [facility] – [place]. TUbal ligation Hx Anesthesia Reactions: No - Immunization History Date of Tetanus Vaccine: Unk Date of Influenza Vaccine: None Infectious Disease History: No Infectious Disease History: Reports: History Other Infectious Disease - VIRAL MENINGITIS Denies: Hx Clostridium Difficile, Hx Hepatitis, Hx Human Immunodeficiency Virus (HIV), Hx of Known/Suspected MRSA, Hx Shingles, Hx Tuberculosis, Hx Known/ Suspected VRE, Hx Known/Suspected VRSA, Traveled Outside the [place] in Last 30 Days - Family History Known Family History: Positive: Cardiac Disease - Grandfather of [place] in 60s , Other - Negative malignant hyperthermia, negative adverse anesthesia reaction Negative: Hypertension, Diabetes - Social History Alcohol Use: Occasionally Alcohol Amount: some today Hx Substance Use: No Substance Use Type: Reports: None Hx Tobacco Use: Yes Smoking Status (MU): Light Every Day Tobacco Smoker Type: Cigarettes Amount Used/How Often: 1/2ppd Length of Time of Smoking/Using Tobacco: 18 years Have You Smoked in the Last Year: Yes Review of Systems Constitutional: Other - poor sleep and recent stress Positive: Headache Psychological: Other - SI Positive: Depressed All Other Systems Reviewed And Are Negative: Yes Physical Exam - Summary Physical Exam Summary: VITAL SIGNS: Reviewed. GENERAL: Patient is a well-developed and nourished female who is lying comfortable in the stretcher. Patient is not in any acute respiratory distress. HEAD AND FACE: No signs of trauma. No ecchymosis, hematomas or skull depressions. No sinus tenderness. EYES: PERRLA, EOMI x 2, No injected conjunctiva, no nystagmus. EARS: Hearing grossly intact. Ear canals and tympanic membranes are within normal limits. MOUTH: Oropharynx within normal limits. NECK: Supple, trachea is midline, no adenopathy, no JVD, no carotid bruit, no c- spine tenderness, neck with full ROM. CHEST: Symmetric, no tenderness at palpation LUNGS: Clear to auscultation bilaterally. No wheezing or crackles. CVS: Regular rate and rhythm, S1 and S2 present, no murmurs or gallops appreciated. ABDOMEN: Soft, non-tender. No signs of distention. No rebound no guarding, and no masses palpated. Bowel sounds are normal. EXTREMITIES: FROM in all major joints, no edema, no cyanosis or clubbing. NEURO: Alert and oriented x 3. No acute neurological deficits. Speech is normal and follows commands. SKIN: Dry and warm PSYCH: anxious and crying. No homicidal thoughts or plan. No signs of psychosis or pressure speech. No tangential speech. Triage Information Reviewed: Yes Vital Signs On Initial Exam: Initial Vitals Temp Pulse Resp BP Pulse Ox 98.1 F 111 16 139/111 97 03/08/18 10:52 03/08/18 10:52 03/08/18 10:52 03/08/18 10:52 03/08/18 10:52 Vital Signs Reviewed: Yes Diagnostics - Vital Signs Vital Signs Temp Pulse Resp BP Pulse Ox 03/08/18 10:52 98.1 F 111 16 139/111 97 - Laboratory Result Diagrams: 03/08/18 11:14 03/08/18 11:14 Lab Statement: Any lab studies that have been ordered have been reviewed, and results considered in the medical decision making process. Course/Dx - Course Assessment/Plan: This patient is a 32 year old F presenting to [facility] accompanied by a male with a chief complaint of a mental breakdown for the last four days. She states she has had thoughts of SI without a plan. She states she has bipolar disorder and had a poor weekend where her friend left her. She reports poor sleep and that she does not take medications. She also c/ o of a silva. Pt is a smoker and does occasional drugs and etoh. Blood work w/o a significant abnormality. She is medically cleared. She is awaiting for a MHE. After MHE by Dr. Gomez the patient will be a voluntary admission for major depressive disorder. Patient is hemodynamically stable and A+O x 3. - Differential Dx/Clinical Impression Differential Diagnosis/HQI/PQRI: Positive: Anxiety, Depression, Suicidal Ideation Provider Diagnosis: Major depression Discharge - Sign-Out/Discharge Documenting (check all that apply): Patient Departure - admitted - Discharge Plan Condition: Fair Disposition: PSYCHIATRIC FACILITY-[facility] [place] Referrals: Alexandrea Luz MD [Primary Care Provider] - - Billing Disposition and Condition Condition: FAIR Disposition: Psychiatric Facility [facility] [place] - Attestation Statements Document Initiated by Scribe: Yes Documenting Scribe: Bertram Gannon Provider For Whom Scribe is Documenting (Include Credential): Yahir Watson MD Scribe Attestation: Bertram Carpenter , scribed for Yahir Watson MD on 03/08/18 at 1825. Scribe Documentation Reviewed: Yes Provider Attestation: The documentation as recorded by the [email or web address] accurately reflects the service I personally performed and the decisions made by me, Yahir Watson MD
[2018-03-08 11:21] LABS: Urine Appearance Cloudy; Urine Blood Negative (Negative); Urine Color Yellow; Urine Ketones Negative (Negative); Urine Protein Negative (Negative); Urine Specific Gravity 1.006 (1.010-1.030); Urine Urobilinogen Negative (Negative)
[2018-03-08 11:25] LABS: ABS Basophils 0 10^3/ul (0-0.2); ABS Eosinophils 0 10^3/ul (0-0.6); ABS Lymphocytes 3.1 10^3/ul (1.0-4.8); ABS Monocytes 0.4 10^3/ul (0-0.8); ABS Neutrophils 4.4 10^3/ul (1.5-7.7); ABS Nucleated RBC 0 10^3/ul; Eosinophil % 0.6 % (0-6); Hematocrit 43 % (35-47); Hemoglobin 14.6 g/dl (12.0-16.0); Lymphocyte % 39.1 % (25-47); Mean Corpuscular HGB Conc 34 g/dl (31-36); Mean Corpuscular Hemoglobin 31 pg (27-31); Mean Corpuscular Volume 92 fL (80-97); Mean Platelet Volume 7.1 fL (7.4-10.4); Nucleated Red Blood Cells % 0.2; Platelet Count 248 10^3/ul (150-450); Red Blood Count 4.66 10^6/ul (4.00-5.40); Red Cell Distribution Width 13 % (10.5-15)
[2018-03-08 11:41] LABS: EGFR Non-African American 93.6 (>60)
[2018-03-08] MEDS ORDERED: Al Hydrox/Mg Hydrox/Simet LIQ* 30 ML UDC PO PRN (12:43)
[2018-03-08] MEDS ORDERED: LORazepam TAB(*) 1 MG PO SCH (13:00)
[2018-03-08] MEDS ORDERED: Nicotine Inhaler* 10 MG AMP ONE (13:10)
[2018-03-08] MEDS: Nicotine Inhaler* 10 MG AMP INH PRN ×2 (13:11→20:36)
[2018-03-08] MEDS ORDERED: Mouth Piece, Nicotine* 1 EACH CARTRIDGE INH ONE (14:00)
[2018-03-08] MEDS ORDERED: hydrOXYzine HCL TAB* 50 MG ONE (18:06)
[2018-03-08] MEDS: hydrOXYzine HCL TAB* 50 MG PO PRN (18:15)
[2018-03-08] MEDS ORDERED: Al Hydrox/Mg Hydrox/Simet LIQ* 30 ML Q2P GAST DISTRESS PO PRN (19:00)
[2018-03-08] MEDS ORDERED: LORazepam PO 0-6 for WAM protocol PO SCH (19:00)
[2018-03-08] MEDS ORDERED: LORazepam IM 0-6 mg for WAM protocol IM SCH (19:00)
[2018-03-09] MEDS ORDERED: Thiamine TAB* 100 MG TAB PO SCH (09:00)
[2018-03-09] MEDS ORDERED: Folic Acid TAB* 1 MG PO SCH (09:00)
[2018-03-09] MEDS: Vitamin THERAPEUTIC TAB PO SCH (09:48)
[2018-03-09] MEDS: Folic Acid TAB* 1 MG DAILY PO SCH (09:50)
[2018-03-09] MEDS: Thiamine TAB* 100 MG TAB DAILY (@ T+1) PO SCH (09:51)
[2018-03-09] MEDS: Nicotine Inhaler* 10 MG AMP INH PRN ×3 (12:11→21:52)
--- NOTE | 2018-03-09 13:18 | HP ---
H&P (Free Text) History and Physical: JUSTIFICATION FOR ADMISSION: Patient presented to emergency room with suicidal ideation and plan, worsening mood instability, alcoholism and cannabis use. She requires inpatient psychiatric admission in order to provide treatment and stabilization as she is a danger to herself. CHIEF COMPLAINT: "I was having just a thought and have been off of medications for a long time HISTORY OF THE PRESENT ILLNESS: Patient is a 32 y/o female, in a relationship, living with her fianc, employed at a [employer], with history of Substance/Alcohol Use Disorder and Bipolar Disorder. Patient was admitted to inpatient unit for worsening of her mood instability, irritability and feeling of rage for days, sleeping 4 hours a night , easily distractible, consuming alcohol 2-3 beers every night after work, smoking cannabis a bowl every day. Patient reports self-medicating her symptoms as she has not been on any medication and treatment since she lost her insurance due to previous loos of work. Patient reportedly has been struggling with her feelings of stress related to psychosocial issues including close adoption of her 4 children and unable to see her child who is in step mothers custody due to relationship conflict with her, planning marriage with her current fiance, work related stress due to short staff. Patient reports manic symptoms as mentioned above but has not experienced them in a while. Patient reports no psychotic symptoms. Patient reports passive suicidal ideation but no intent or plan, no homicidal ideation on the unit. Patient continued to exhibit behavior that is in better control, less restless, less hyper verbal and is currently receiving Ativan as per [facility] protocol. PAST PSYCHIATRIC HISTORY: Patient has history of no inpatient psychiatric hospitalization. Patient has history of outpatient psychiatric treatment for her Bipolar Disorder and Substance/Alcohol Use. Patients medication trials has included Vivitrol for alcohol use Disorder. Patient has been on Depakote in the past but reported improvement with [place] and an anxiety medicine that she was getting from Dr. Joshua at [facility]. Patient has history of suicidal thoughts but no attempt or plan. Patient has history of self-injurious behavior by cutting her wrist from age [age] to relieve emotional distress. Patient has history of no homicidal threats, intent or attempt. Patient has history of aggressive and agitated behavior when decompensates. No access to firearm reported. Patient has history of being on probation in that past but no pending charges. SUBSTANCE ABUSE HISTORY: Patient uses about a bowl of Cannabis daily to relieve her anxiety. Urine toxicology was positive for Cannabis. Patient also consumed Alcohol on a daily basis recently about 2-3 Beers at night. Patient has history of using cocaine, opioids in the past and has been abstinent from it for about 4 years. Patient received multiple inpatient and outpatient rehab for that. Patient last use was day of ED visit. Patient was abstinent from alcohol for some time as well until recently relapsed about couple of months ago. PAST MEDICAL HISTORY: No active medical problems ALLERGIES: [facility] FAMILY PSYCHIATRIC HISTORY: Patient has family history of Bipolar Disorder as per patient in both her biological parents and maternal grandmother but not aware if they receive treatment. Patient has history of alcohol abuse in her biological mother. No reported suicide in the family. FAMILY/PSYCHOSOCIAL HISTORY: Patient currently lives with her fiance of 3 years, step son and mother in law. Patient is planning for her marriage next year. Patient has 5 children of her own and all her children were adopted due to her drug use. Patient education level is dropped out in 11th grade but completed her GED later on in 2010. Patient feels somewhat closer to her mother and step farther than her father and step mother. Patient support system includes her friends and fiances family. REVIEW OF SYSTEMS: Patients review of symptoms was negative for any physical complaint. Vitals and labs reviewed and table. Patients ED physical exam was reviewed which is grossly normal with no active medical problem. Physical Exam Summary: VITAL SIGNS: Reviewed. GENERAL: Patient is a well-developed and nourished female who is lying comfortable in the stretcher. Patient is not in any acute respiratory distress. HEAD AND FACE: No signs of trauma. No ecchymosis, hematomas or skull depressions. No sinus tenderness. EYES: PERRLA, EOMI x 2, No injected conjunctiva, no nystagmus. EARS: Hearing grossly intact. Ear canals and tympanic membranes are within normal limits. MOUTH: Oropharynx within normal limits. NECK: Supple, trachea is midline, no adenopathy, no JVD, no carotid bruit, no c- spine tenderness, neck with full ROM. CHEST: Symmetric, no tenderness at palpation LUNGS: Clear to auscultation bilaterally. No wheezing or crackles. CVS: Regular rate and rhythm, S1 and S2 present, no murmurs or gallops appreciated. ABDOMEN: Soft, non-tender. No signs of distention. No rebound no guarding, and no masses palpated. Bowel sounds are normal. EXTREMITIES: FROM in all major joints, no edema, no cyanosis or clubbing. NEURO: Alert and oriented x 3. No acute neurological deficits. Speech is normal and follows commands. SKIN: Dry and warm PSYCH: anxious and crying. No homicidal thoughts or plan. No signs of psychosis or pressure speech. No tangential speech. MENTAL STATUS EXAMINATION: Appearance: 32 y/o female, restless, anxious, tense, making fair but intermittent eye contact, easily distractible, fair hygiene and grooming. Behavior: in control Gait: normal Abnormal motor activity: somewhat hyperactive Speech: hyperverbal Mood: depressed Affect: anxious and dysphoric Thought process: circumstantial Thought Content: Suicidal/Homicidal ideation: passive si, no hi Delusions: none Obsessions: none Phobia: none Perceptual disturbance: none Attention: limited Orientation: grossly intact Concentration: limited Memory: fair Insight: fair Judgment: fair Impulse control: fair IMPRESSION: Patient with history of Bipolar Disorder and Substance/Alcohol Use Disorder. Patient currently admitted due to worsening of her mood instability, suicidal thoughts and increase usage of alcohol and cannabis. Patient has also struggled with psychosocial stressor related to her adopted children, planning marriage with her current fiance, increase work load. Patient is a danger to self if discharged hence will be stabilized on inpatient unit with medication adjustments and therapy. DIAGNOSIS: Bipolar Disorder unspecified, Alcohol Use Disorder, Cannabis Use Disorder PLAN: Admit to U on Q 15 min observation. Patient is full code. Patient is on voluntary admission status Integrate patient into the milieu Individual and group psychotherapy MMPI and psychological consult with Dr. Davalos. Social work consult for therapy and discharge planning Will hold family meeting with parents to increase Data base. Patient gave informed consent to start the following medications: Patient was started on [place] 300 mg BID for Bipolar Disorder. Patient continue with [facility] protocol for alcohol withdrawal. Hydroxyzine PRN for anxiety for now. Will continue to monitor and f/u for improvement and side effects. Wei Gomez MD Attending Psychiatrist
[2018-03-09] MEDS: Lithium Carbonate TAB* 300 MG PO SCH ×2 (14:01→21:01)
[2018-03-10] MEDS: Nicotine Inhaler* 10 MG AMP INH PRN ×5 (01:00→21:53)
[2018-03-10] MEDS: Lithium Carbonate TAB* 300 MG PO SCH ×2 (09:30→21:50)
[2018-03-10] MEDS: Folic Acid TAB* 1 MG DAILY PO SCH (09:30)
[2018-03-10] MEDS: Vitamin THERAPEUTIC TAB PO SCH (09:30)
[2018-03-10] MEDS: Thiamine TAB* 100 MG TAB DAILY (@ T+1) PO SCH (09:30)
--- NOTE | 2018-03-10 15:27 | PN ---
Subjective - Subjective Date of Service: 03/10/18 Service Type: [id number] Hosp care 15 min low complexity Subjective: Raiza is seen in weekend coverage for Dr. Gomez. She presents as somewhat hyperthymic, greets me enthusiastically and gives effusive praise to the unit and what we've done for her so far. "I was so bad on I knew I had to sign myself in here." She states that her depression has resolved and she is gearing up to work at the [employer] in [place] this . She notes that she continues to have a hard time sleeping. She denies SI or HI and is tolerating her medications well. Her speech is somewhat pressured. Objective - Appearance Appearance: Well Developed/Nourished Dysmorphic Features: No Hygiene: Normal Grooming: Well Kept - Behavior Psychomotor Activities: Abnormal-Increased Exhibits Abnormal Movement: No - Attitude and Relatedness Attitude and Relatedness: Cooperative Eye Contact: Good - Speech Quality: Pressured Latencies: Short Quantity: Copious - Mood Patient's Decription of Mood: "Great" - Affect Observed Affect: Expansive Affect Consistent with: Euthymia - Thought Process Patient's Thought Process: Tangential Thought Content: No Passive Wish, No Suicidal Planning, No Homicidal Ideation, No Paranoid Ideation - Sensorium Experiencing Hallucinations: No, Sensorium is Clear Type of Hallucinations: Visual: No, Auditory: No, Command: No - Level of Consciousness Level of Consciousness: Alert Orientation: Yes Intact, Yes Orientated to Time, Yes Orientated to Place, Yes Orientated to Person - Impulse Control Impulse Control: Tenuous - Insight and Judgement Insight and Judgement: Fair - Group Participation Particating in Group Activities: Yes - Medication Management Medication Management Adherence: Yes Assessment - Assessment Merits Inpatient Hospitalization: For Immediate Safety, For Stabilization Inpatient DSM-V Dx: F31.63 Clinical Impression: 32 y.o. single, mixed-race female with a history of bipolarity and alcohol misuse admitted for depression and SI. MHU: Problem List - Patient Problems (1) Bipolar affective, mixed, severe Current Visit: Yes Status: Acute Priority: High Code(s): F31.63 - BIPOLAR DISORD, CRNT EPSD MIXED, SEVERE, W/O PSYCH FEATURES SNOMED Code(s): 083676424406 Plan - Plan Treatment Plan: Name: RAIZA HESTER Birthdate: 1985 [id number] The patient is now on lithium and the [facility] protocol. We will start a trial of quetiapine 50mg PO qhs for improved sleep and mood stabilization. Continue to treat on the inpatient unit. Continued Medication Management: Start Medication Medications: Current Medications Acetaminophen (Tylenol Tab*) 650 mg PO Q4H PRN PRN Reason: for pain; or Temp >101 F Al Hydrox/Mg Hydrox/Simethicone (Maalox Plus*) 30 ml PO Q2H PRN PRN Reason: PRN GASTRIC DISTRESS Folic Acid (Folvite Tab*) 1 mg PO DAILY [facility] Last Admin: 03/10/18 09:30 Dose: 1 mg Hydroxyzine HCl (Atarax Tab*) 50 mg PO Q6H PRN PRN Reason: ANXIETY Last Admin: 03/08/18 18:15 Dose: 50 mg [place] Carbonate ([place] Carbonate Tab*) 300 mg PO BID [facility] Last Admin: 03/10/18 09:30 Dose: 300 mg Lorazepam (Ativan Tab(*)) 0 - 6 mg PO .PER [facility] PARAMETERS SINDHU; Protocol Lorazepam (Ativan Inj*) 0 - 6 mg IM .PER [facility] PROTOCOL SINDHU; Protocol Multivitamins (Theragran Tab*) 1 tab PO DAILY [facility] Last Admin: 03/10/18 09:30 Dose: 1 tab Nicotine (Nicotine Inhaler*) 10 mg INH Q2H PRN PRN Reason: CRAVING Last Admin: 03/10/18 13:37 Dose: 10 mg Nicotine Polacrilex (Nicotine Gum*) 2 mg PO Q2H PRN PRN Reason: CRAVING Thiamine HCl (Vitamin B-1 Tab*) 100 mg PO DAILY [facility] Last Admin: 03/10/18 09:30 Dose: 100 mg - Discharge Plan Discharge Plan: Inpatient Hospitalization Lab Results - Lab Results Lab Results: 03/08/18 03/08/18 03/08/18 11:09 11:09 11:14 WBC 8.0 RBC 4.66 Hgb 14.6 Hct 43 MCV 92 MCH 31 MCHC 34 RDW 13 Plt Count 248 MPV 7.1 L Neut % (Auto) 55.5 Lymph % (Auto) 39.1 [place] % (Auto) 4.4 Eos % (Auto) 0.6 Baso % (Auto) 0.4 Absolute Neuts (auto) 4.4 Absolute Lymphs (auto) 3.1 Absolute Monos (auto) 0.4 Absolute Eos (auto) 0 Absolute Basos (auto) 0 Absolute Nucleated RBC 0 Nucleated RBC % 0.2 Sodium Potassium Chloride Carbon Dioxide Anion Gap BUN Creatinine Est GFR ( Amer) Est GFR (Non-Af Amer) BUN/Creatinine Ratio Glucose Hemoglobin A1c Calcium Total Bilirubin AST ALT Alkaline Phosphatase Total Protein Albumin Globulin Albumin/Globulin Ratio Triglycerides Cholesterol LDL Cholesterol HDL Cholesterol TSH Urine Color Yellow Urine Appearance Cloudy Urine pH 6.0 Ur Specific Aguilar 1.006 L Urine Protein Negative Urine Ketones Negative Urine Blood Negative Urine Nitrate Negative Urine Bilirubin Negative Urine Urobilinogen Negative Ur Leukocyte Esterase Negative Urine Glucose Negative Salicylates Urine Opiates Screen None detected Acetaminophen Ur Barbiturates Screen None detected Ur Phencyclidine Scrn None detected Ur Amphetamines Screen None detected U Benzodiazepines Scrn None detected Urine Cocaine Screen None detected U Cannabinoids Screen Presumptive positive A Serum Alcohol 03/08/18 03/09/18 03/09/18 11:14 08:38 08:38 WBC RBC Hgb Hct MCV MCH MCHC RDW Plt Count MPV Neut % (Auto) Lymph % (Auto) [place] % (Auto) Eos % (Auto) Baso % (Auto) Absolute Neuts (auto) Absolute Lymphs (auto) Absolute Monos (auto) Absolute Eos (auto) Absolute Basos (auto) Absolute Nucleated RBC Nucleated RBC % Sodium 142 Potassium 3.6 Chloride 109 Carbon Dioxide 24 Anion Gap 9 BUN 7 Creatinine 0.73 Est GFR ( Amer) 113.3 Est GFR (Non-Af Amer) 93.6 BUN/Creatinine Ratio 9.6 Glucose 108 H Hemoglobin A1c 5.4 Calcium 9.2 Total Bilirubin 0.30 AST 26 ALT 18 Alkaline Phosphatase 58 Total Protein 7.9 Albumin 5.0 Globulin 2.9 Albumin/Globulin Ratio 1.7 Triglycerides 47 Cholesterol 166 LDL Cholesterol 77 HDL Cholesterol 79.7 TSH 1.18 Urine Color Urine Appearance Urine pH Ur Specific Agu[place] Urine Protein Urine Ketones Urine Blood Urine Nitrate Urine Bilirubin Urine Urobilinogen Ur Leukocyte Esterase Urine Glucose Salicylates < 2.50 Urine Opiates Screen Acetaminophen < 15 Ur Barbiturates Screen Ur Phencyclidine Scrn Ur Amphetamines Screen U Benzodiazepines Scrn Urine Cocaine Screen U Cannabinoids Screen Serum Alcohol 235 H
[2018-03-10] MEDS: Nicotine GUM* 2 MG PO PRN (17:33)
[2018-03-10] MEDS: QUEtiapine TAB* 25 MG PO SCH (21:50)
[2018-03-11] MEDS: Vitamin THERAPEUTIC TAB PO SCH (09:18)
[2018-03-11] MEDS: Folic Acid TAB* 1 MG DAILY PO SCH (09:18)
[2018-03-11] MEDS: Lithium Carbonate TAB* 300 MG PO SCH ×2 (09:18→22:02)
[2018-03-11] MEDS: Thiamine TAB* 100 MG TAB DAILY (@ T+1) PO SCH (09:18)
[2018-03-11] MEDS: Acetaminophen TAB* 325 MG PO PRN (09:19)
[2018-03-11] MEDS: Nicotine Inhaler* 10 MG AMP INH PRN ×5 (10:04→22:04)
[2018-03-11] MEDS: hydrOXYzine HCL TAB* 50 MG PO PRN (11:29)
[2018-03-11] MEDS: Nicotine GUM* 2 MG PO PRN ×2 (12:37→18:30)
[2018-03-11] MEDS: QUEtiapine TAB* 25 MG PO SCH (22:02)
[2018-03-12] MEDS: Nicotine GUM* 2 MG PO PRN ×3 (09:21→18:42)
[2018-03-12] MEDS: Nicotine Inhaler* 10 MG AMP INH PRN ×3 (09:21→18:41)
[2018-03-12] MEDS: Vitamin THERAPEUTIC TAB PO SCH (09:22)
[2018-03-12] MEDS: Lithium Carbonate TAB* 300 MG PO SCH ×2 (09:22→21:51)
[2018-03-12] MEDS: Folic Acid TAB* 1 MG DAILY PO SCH (09:22)
[2018-03-12] MEDS: Thiamine TAB* 100 MG TAB DAILY (@ T+1) PO SCH (09:22)
[2018-03-12] MEDS: Acetaminophen TAB* 325 MG PO PRN (09:22)
--- NOTE | 2018-03-12 12:14 | PN ---
Subjective - Subjective Date of Service: 03/12/18 Service Type: [id number] Hosp care 15 min low complexity Subjective: Patient was seen by self, discussed with treatment team, chart was reviewed. Patient has been compliant with her medications, no reported side effects. Patient reports some improvement in her anxiety and mood instability. Patient is less hyperactive, less racing thoughts. Patient reported limited sleeping improvement with addition of Seroquel at bedtime. Patient eating has been fair. patient is attending groups and participating in the milieu. Patient has been cooperative with staff. Patient behavior has been in control. Patient has been reporting no suicidal or homicidal ideation. No psychotic symptoms of delusions or hallucinations. Objective - Appearance Appearance: Well Developed/Nourished Dysmorphic Features: Yes Hygiene: Normal Grooming: Fairly Well Kept - Behavior Psychomotor Activities: Normal - less hyperactive Exhibits Abnormal Movement: Yes - Attitude and Relatedness Attitude and Relatedness: Cooperative Eye Contact: Fair - Speech Quality: Unpressured Latencies: Normal Quantity: Appropriate - Mood Patient's Decription of Mood: "Anxious" - Affect Observed Affect: Labile - less Affect Consistent with: Euthymia - Thought Process Patient's Thought Process: Circumstantial Thought Content: No Passive Wish, No Suicidal Planning, No Homicidal Ideation, No Paranoid Ideation - Sensorium Experiencing Hallucinations: No, Sensorium is Clear Type of Hallucinations: Visual: No, Auditory: No, Command: No - Level of Consciousness Level of Consciousness: Alert Orientation: Yes Intact, Yes Orientated to Time, Yes Orientated to Place, Yes Orientated to Person - Impulse Control Impulse Control: Intact - Insight and Judgement Insight and Judgement: Fair - Group Participation Particating in Group Activities: Yes - Medication Management Medication Management Adherence: Yes Assessment - Assessment Merits Inpatient Hospitalization: For Immediate Safety, For Stabilization, For Discharge Planning Inpatient DSM-V Dx: F31.63 Clinical Impression: 32 y.o. single, mixed-race female with a history of bipolarity and alcohol misuse admitted for depression and SI. MHU: Problem List - Patient Problems (1) Alcohol use disorder Current Visit: Yes Status: Acute Code(s): [id number] - SNOMED Code(s): 41933449 (2) Bipolar affective, mixed, severe Current Visit: Yes Status: Acute Priority: High Code(s): F31.63 - BIPOLAR DISORD, CRNT EPSD MIXED, SEVERE, W/O PSYCH FEATURES SNOMED Code(s): 437928761619 Plan - Plan Treatment Plan: Name: RAIZA HESTER Birthdate: 1985 [id number] - Patient continues to be hospitalized due to recent suicidal thoughts with plan , mood instability, anxiety and alcohol abuse. - Patient's medications were adjusted after informed consent with increment in Iraan to 300 mg QAM and 600mg at Bedtime to address mood stabilization. Patient Seroquel was also increased to 75 mg at Bedtime to address sleep and augment mood stabilization. Patient will asl be started on Naltrexone 50 mg PO QAM to help with alcohol craving and urges. - Patient will be monitored for improvement and side effects. Risk and benefits were discussed. - Patient was encouraged to continue his participation in the milieu, group and individual therapy. Medications: Current Medications Acetaminophen (Tylenol Tab*) 650 mg PO Q4H PRN PRN Reason: for pain; or Temp >101 F Last Admin: 03/12/18 09:22 Dose: 650 mg Al Hydrox/Mg Hydrox/Simethicone (Maalox Plus*) 30 ml PO Q2H PRN PRN Reason: PRN GASTRIC DISTRESS Folic Acid (Folvite Tab*) 1 mg PO DAILY [facility] Last Admin: 03/12/18 09:22 Dose: 1 mg Hydroxyzine HCl (Atarax Tab*) 50 mg PO Q6H PRN PRN Reason: ANXIETY Last Admin: 03/11/18 11:29 Dose: 50 mg [place] Carbonate (Ira[place] Carbonate Tab*) 300 mg PO QAM SINDHU [place] Carbonate ([place] Carbonate Tab*) 600 mg PO BEDTIME SINDHU Multivitamins (Theragran Tab*) 1 tab PO DAILY SINDHU Last Admin: 03/12/18 09:22 Dose: 1 tab Nicotine (Nicotine Inhaler*) 10 mg INH Q2H PRN PRN Reason: CRAVING Last Admin: 03/12/18 09:21 Dose: 10 mg Nicotine Polacrilex (Nicotine Gum*) 2 mg PO Q2H PRN PRN Reason: CRAVING Last Admin: 03/12/18 09:21 Dose: 2 mg Quetiapine Fumarate (Seroquel Tab*) 75 mg PO BEDTIME [facility] Thiamine HCl (Vitamin B-1 Tab*) 100 mg PO DAILY [facility] Last Admin: 03/12/18 09:22 Dose: 100 mg
[2018-03-12] MEDS: Naltrexone TAB* 50 MG TAB PO SCH (13:06)
--- NOTE | 2018-03-12 15:01 | CONS ---
PSYCHOLOGICAL REPORT: DATE OF CONSULT: 03/12/18 REASON FOR REFERRAL: Erum was referred for psychological testing secondary to concerns regarding historical diagnosis of a bipolar disorder as well as concomitant depression. TEST ADMINISTERED: Erum completed the [place] Multiphasic Personality Inventory-2 (MMPI-2). She was given feedback regarding results in individual conversation and was also seen in the context of cognitive behavioral group psychotherapy led by this racebook writer today. RELEVANT HISTORY: Erum was hospitalized secondary to increasing stress with recurrence of substance and alcohol use disorder characterized by drinking beer and smoking marijuana. She was admitted secondary to her description of mood instability and feeling increased irritability and anger for the past few days. She describes of having only slept around 4 hours at night and was easily distractible and having difficulties in moderating alcohol and drug use. She endorsed suicidal thoughts, describing increasing stress in managing her duties at work where there are short of employees as well as planning for the wedding with her fiance of 3 years' time. Erum describes having a supportive living environment where she lives with her future [id number] as well as her fiance and his son from another relationship. She apparently has not retained custody of any 5 biological children she has had secondary to drug use and emotional health. Erum is educated to the 10th grade level, having dropped out in 11th grade and having completed her GED in 2010. 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 TEST RESULTS: Erum has an elevation occurring on the depression scale on this administration of the MMPI-2 with 2 other minor clinical elevations being present. She elevates the psychopathic deviate and paranoia scales to very minor degrees (T = 66), which is reflective of hypersensitivities to perceived criticisms as well as some disdain for social conformity. Of interest also is an elevated lie scale, which is thought to be reflective of poor insight regarding human nature in general. Also of concern is subclinical score on a hypomania scale (T = 50), which is not indicative of a bipolar process being present at least in the testing context. IMPRESSION AND RECOMMENDATIONS: Although Erum's testing does not support concerns regarding a bipolar process, she quite clearly articulates symptoms thereof being present prior to her admission and her subsequent compliance with prescribed lithium and general improvement in mood stability and coherent thinking would support ongoing treatment for bipolar disorder that she has historically, but diagnosed with. She does have positive insights regarding need for sobriety as well as learning to cope with emotional duress in a more forthright fashion. She expresses her intention to compliance with recommended outpatient treatment and has been waiting prior to her discharge to meet with the Medicaid navigator, who hopefully will be successful in establishing her case. Erum impresses as likely a candidate to remain compliant with prescribed medications and is familiar with current prescribed medications. She expresses diminished depressive symptomatology and is able to spontaneously describe prosocial interest in goals. Diagnostic concerns support bipolar 1 diagnosis as well as recurrent difficulties with alcohol and substance abuse. [id number]/CPS #: [id number] MORENITA
[2018-03-12] MEDS ORDERED: QUEtiapine TAB* 25 MG PO SCH (21:00)
[2018-03-13] MEDS: Naltrexone TAB* 50 MG TAB PO SCH (09:06)
[2018-03-13] MEDS: Vitamin THERAPEUTIC TAB PO SCH (09:06)
[2018-03-13] MEDS: Lithium Carbonate TAB* 300 MG PO SCH ×2 (09:06→22:01)
[2018-03-13] MEDS: Nicotine GUM* 2 MG PO PRN ×3 (09:06→17:45)
[2018-03-13] MEDS: Thiamine TAB* 100 MG TAB DAILY (@ T+1) PO SCH (09:06)
[2018-03-13] MEDS: Folic Acid TAB* 1 MG DAILY PO SCH (09:06)
[2018-03-13] MEDS: Nicotine Inhaler* 10 MG AMP INH PRN ×3 (09:06→17:45)
--- NOTE | 2018-03-13 11:17 | PN ---
Subjective - Subjective Date of Service: 03/13/18 Service Type: 42153 Hosp care 15 min low complexity Subjective: Patient was seen by self, discussed with treatment team, chart was reviewed. Patient has been compliant with her medications, no reported side effects. Patient reports further improvement in her anxiety and mood instability. Patient is less hyperactive, less racing thoughts. Patient reported sleeping better with less interruption. Patient eating has been fair. patient is attending groups and participating in the milieu. Patient has been cooperative with staff. Patient behavior has been in control and team agreed with staff pass and reduction in level of observation to Q30 minutes.. Patient has been reporting no suicidal or homicidal ideation. No psychotic symptoms of delusions or hallucinations. Objective - Appearance Appearance: Healthy Appearing Dysmorphic Features: No Hygiene: Normal Grooming: Fairly Well Kept - Behavior Psychomotor Activities: Normal Exhibits Abnormal Movement: No - Attitude and Relatedness Attitude and Relatedness: Cooperative Eye Contact: Fair - Speech Quality: Unpressured Latencies: Normal Quantity: Appropriate - Mood Patient's Decription of Mood: "Fine" - Affect Observed Affect: Fair Affect Consistent with: Euthymia - Thought Process Patient's Thought Process: Coherent Thought Content: No Passive Wish, No Suicidal Planning, No Homicidal Ideation, No Paranoid Ideation - Sensorium Experiencing Hallucinations: No, Sensorium is Clear Type of Hallucinations: Visual: No, Auditory: No, Command: No - Level of Consciousness Level of Consciousness: Alert Orientation: Yes Intact, Yes Orientated to Time, Yes Orientated to Place, Yes Orientated to Person - Impulse Control Impulse Control: Intact - Insight and Judgement Insight and Judgement: Fair - Group Participation Particating in Group Activities: Yes - Medication Management Medication Management Adherence: Yes Assessment - Assessment Merits Inpatient Hospitalization: For Immediate Safety, For Stabilization, For Discharge Planning Inpatient DSM-V Dx: F31.63 Clinical Impression: 32 y.o. single, mixed-race female with a history of bipolarity and alcohol misuse admitted for depression and SI. MHU: Problem List - Patient Problems (1) Alcohol use disorder Current Visit: Yes Status: Acute Code(s): [id number] - SNOMED Code(s): 79998845 (2) Bipolar affective, mixed, severe Current Visit: Yes Status: Acute Priority: High Code(s): F31.63 - BIPOLAR DISORD, CRNT EPSD MIXED, SEVERE, W/O PSYCH FEATURES SNOMED Code(s): 901070899321 Plan - Plan Treatment Plan: Name: RAIZA HESTER Birthdate: 1985 [id number] - Patient continues to be hospitalized due to recent suicidal thoughts with plan , mood instability, anxiety and alcohol abuse. - Patient's medications were continued with Naltrexone 50 mg PO QAM, [place] 300 mg QAM and 600mg at Bedtime to address mood stabilization. Patient Seroquel was increased to 100 mg at Bedtime to address sleep and augment further mood stabilization. Will obtain [place] level tomorrow with CMP. - Patient was counseled about substance and alcohol abuse and is willing to follow up with its treatment and reports reduced craving or urges. - Patient will be monitored for improvement and side effects. Risk and benefits were discussed. - Patient was encouraged to continue his participation in the milieu, group and individual therapy. Medications: Current Medications Acetaminophen (Tylenol Tab*) 650 mg PO Q4H PRN PRN Reason: for pain; or Temp >101 F Last Admin: 03/12/18 09:22 Dose: 650 mg Al Hydrox/Mg Hydrox/Simethicone (Maalox Plus*) 30 ml PO Q2H PRN PRN Reason: PRN GASTRIC DISTRESS Folic Acid (Folvite Tab*) 1 mg PO DAILY [facility] Last Admin: 03/13/18 09:06 Dose: 1 mg Hydroxyzine HCl (Atarax Tab*) 50 mg PO Q6H PRN PRN Reason: ANXIETY Last Admin: 03/11/18 11:29 Dose: 50 mg Beckett Carbonate (Beckett Carbonate Tab*) 300 mg PO QAM S[facility]HU Last Admin: 03/13/18 09:06 Dose: 300 mg [place]ett Carbonate (Beckett Carbonate Tab*) 600 mg PO BEDTIME SINDHU Last Admin: 03/12/18 21:51 Dose: 600 mg Multivitamins (Theragran Tab*) 1 tab PO DAILY [facility] Last Admin: 03/13/18 09:06 Dose: 1 tab Naltrexone HCl (Naltrexone Tab*) 50 mg PO DAILY [facility]; Protocol Last Admin: 03/13/18 09:06 Dose: 50 mg Nicotine (Nicotine Inhaler*) 10 mg INH Q2H PRN PRN Reason: CRAVING Last Admin: 03/13/18 09:06 Dose: 10 mg Nicotine Polacrilex (Nicotine Gum*) 2 mg PO Q2H PRN PRN Reason: CRAVING Last Admin: 03/13/18 09:06 Dose: 2 mg Quetiapine Fumarate (Seroquel Tab*) 75 mg PO BEDTIME [facility] Last Admin: 03/12/18 21:52 Dose: 75 mg Thiamine HCl (Vitamin B-1 Tab*) 100 mg PO DAILY [facility] Last Admin: 03/13/18 09:06 Dose: 100 mg
[2018-03-13] MEDS: Acetaminophen TAB* 325 MG PO PRN (15:07)
[2018-03-13] MEDS: hydrOXYzine HCL TAB* 50 MG PO PRN (20:44)
[2018-03-13] MEDS ORDERED: QUEtiapine TAB* 25 MG PO SCH (21:00)
[2018-03-14 07:48] LABS: Lithium 0.99 mmol/L (0.6-1.2)
[2018-03-14 08:19] VITALS: BP 118/71
[2018-03-14] MEDS: Lithium Carbonate TAB* 300 MG PO SCH (08:57)
[2018-03-14] MEDS: Naltrexone TAB* 50 MG TAB PO SCH (08:57)
[2018-03-14] MEDS: Folic Acid TAB* 1 MG DAILY PO SCH (08:57)
[2018-03-14] MEDS: Thiamine TAB* 100 MG TAB DAILY (@ T+1) PO SCH (08:58)
[2018-03-14] MEDS: Vitamin THERAPEUTIC TAB PO SCH (08:58)
--- NOTE | 2018-03-14 11:01 | DS ---
Subjective - Subjective Service Types: 66030 [facility] Day Mgmt complex over 30 min Discharge Date: 03/14/18 Subjective: JUSTIFICATION FOR ADMISSION: Patient presented to emergency room with suicidal ideation and plan, worsening mood instability, alcoholism and cannabis use. She requires inpatient psychiatric admission in order to provide treatment and stabilization as she is a danger to herself. CHIEF COMPLAINT: "I was having just a thought and have been off of medications for a long time HISTORY OF THE PRESENT ILLNESS: Patient is a 32 y/o female, in a relationship, living with her fianc, employed at a gas [employer], with history of Substance/Alcohol Use Disorder and Bipolar Disorder. Patient was admitted to inpatient unit for worsening of her mood instability, irritability and feeling of rage for days, sleeping 4 hours a night , easily distractible, consuming alcohol 2-3 beers every night after work, smoking cannabis a bowl every day. Patient reports self-medicating her symptoms as she has not been on any medication and treatment since she lost her insurance due to previous loos of work. Patient reportedly has been struggling with her feelings of stress related to psychosocial issues including close adoption of her 4 children and unable to see her child who is in step mothers custody due to relationship conflict with her, planning marriage with her current fiance, work related stress due to short staff. Patient reports manic symptoms as mentioned above but has not experienced them in a while. Patient reports no psychotic symptoms. Patient reports passive suicidal ideation but no intent or plan, no homicidal ideation on the unit. Patient continued to exhibit behavior that is in better control, less restless, less hyper verbal and is currently receiving Ativan as per [facility] protocol. PAST PSYCHIATRIC HISTORY: Patient has history of no inpatient psychiatric hospitalization. Patient has history of outpatient psychiatric treatment for her Bipolar Disorder and Substance/Alcohol Use. Patients medication trials has included Vivitrol for alcohol use Disorder. Patient has been on Depakote in the past but reported improvement with [place] and an anxiety medicine that she was getting from Dr. Joshua at [facility]. Patient has history of suicidal thoughts but no attempt or plan. Patient has history of self-injurious behavior by cutting her wrist from age [age] to relieve emotional distress. Patient has history of no homicidal threats, intent or attempt. Patient has history of aggressive and agitated behavior when decompensates. No access to firearm reported. Patient has history of being on probation in that past but no pending charges. SUBSTANCE ABUSE HISTORY: Patient uses about a bowl of Cannabis daily to relieve her anxiety. Urine toxicology was positive for Cannabis. Patient also consumed Alcohol on a daily basis recently about 2-3 Beers at night. Patient has history of using cocaine, opioids in the past and has been abstinent from it for about 4 years. Patient received multiple inpatient and outpatient rehab for that. Patient last use was day of ED visit. Patient was abstinent from alcohol for some time as well until recently relapsed about couple of months ago. PAST MEDICAL HISTORY: No active medical problems ALLERGIES: [facility] FAMILY PSYCHIATRIC HISTORY: Patient has family history of Bipolar Disorder as per patient in both her biological parents and maternal grandmother but not aware if they receive treatment. Patient has history of alcohol abuse in her biological mother. No reported suicide in the family. FAMILY/PSYCHOSOCIAL HISTORY: Patient currently lives with her fiance of 3 years, step son and mother in law. Patient is planning for her marriage next year. Patient has 5 children of her own and all her children were adopted due to her drug use. Patient education level is dropped out in 11th grade but completed her GED later on in 2010. Patient feels somewhat closer to her mother and step farther than her father and step mother. Patient support system includes her friends and fiances family. REVIEW OF SYSTEMS: Patients review of symptoms was negative for any physical complaint. Vitals and labs reviewed and table. Patients ED physical exam was reviewed which is grossly normal with no active medical problem. Physical Exam Summary: VITAL SIGNS: Reviewed. GENERAL: Patient is a well-developed and nourished female who is lying comfortable in the stretcher. Patient is not in any acute respiratory distress. HEAD AND FACE: No signs of trauma. No ecchymosis, hematomas or skull depressions. No sinus tenderness. EYES: PERRLA, EOMI x 2, No injected conjunctiva, no nystagmus. EARS: Hearing grossly intact. Ear canals and tympanic membranes are within normal limits. MOUTH: Oropharynx within normal limits. NECK: Supple, trachea is midline, no adenopathy, no JVD, no carotid bruit, no c- spine tenderness, neck with full ROM. CHEST: Symmetric, no tenderness at palpation LUNGS: Clear to auscultation bilaterally. No wheezing or crackles. CVS: Regular rate and rhythm, S1 and S2 present, no murmurs or gallops appreciated. ABDOMEN: Soft, non-tender. No signs of distention. No rebound no guarding, and no masses palpated. Bowel sounds are normal. EXTREMITIES: FROM in all major joints, no edema, no cyanosis or clubbing. NEURO: Alert and oriented x 3. No acute neurological deficits. Speech is normal and follows commands. SKIN: Dry and warm PSYCH: anxious and crying. No homicidal thoughts or plan. No signs of psychosis or pressure speech. No tangential speech. MENTAL STATUS EXAMINATION ON ADMISSION: Appearance: 32 y/o female, restless, anxious, tense, making fair but intermittent eye contact, easily distractible, fair hygiene and grooming. Behavior: in control Gait: normal Abnormal motor activity: somewhat hyperactive Speech: hyperverbal Mood: depressed Affect: anxious and dysphoric Thought process: circumstantial Thought Content: Suicidal/Homicidal ideation: passive si, no hi Delusions: none Obsessions: none Phobia: none Perceptual disturbance: none Attention: limited Orientation: grossly intact Concentration: limited Memory: fair Insight: fair Judgment: fair Impulse control: fair DIAGNOSIS ON ADMISSION: Bipolar Disorder unspecified, Alcohol Use Disorder, Cannabis Use Disorder DIAGNOSIS ON DISCHARGE: Bipolar Disorder unspecified, Alcohol Use Disorder, Cannabis Use Disorder Objective - Appearance Appearance: Healthy Appearing Dysmorphic Features: No Hygiene: Normal Grooming: Fairly Well Kept - Behavior Psychomotor Activities: Normal Exhibits Abnormal Movement: No - Attitude and Relatedness Attitude and Relatedness: Cooperative Eye Contact: Fair - Speech Quality: Unpressured Latencies: Normal Quantity: Appropriate - Mood Patient's Decription of Mood: "Fine" - Affect Observed Affect: Fair Affect Consistent with: Euthymia - Thought Process Patient's Thought Process: Coherent Thought Content: No Passive Wish, No Suicidal Planning, No Homicidal Ideation, No Paranoid Ideation - Sensorium Experiencing Hallucinations: No, Sensorium is Clear Type of Hallucinations: Visual: No, Auditory: No, Command: No - Level of Consciousness Orientation: No Intact, No Orientated to Time, No Orientated to Place, No Orientated to Person - Impulse Control Impulse Control: Intact - Insight and Judgement Insight and Judgement: Fair - Group Participation Particating in Group Activities: Yes - Medication Management Medication Management Adherence: Yes Treatment Course & Assessment Clinical Course & Impression: Patient is 32 y/o female with history of Bipolar Disorder and Substance/Alcohol Use Disorder. Patient currently admitted due to worsening of her mood instability, suicidal thoughts and increase usage of alcohol and cannabis. Patient has also struggled with psychosocial stressor related to her adopted children, lack of medical insurance and failed to follow up with treatment, planning marriage with her current fiance, increase work load. Patient was a danger to self if discharged hence will be stabilized on inpatient unit with medication adjustments and therapy. Patient was admitted to [facility] on Q 15 min observation. Patient was on voluntary admission status. Integrated patient into the milieu, individual and group psychotherapy. Social work consulted for therapy and discharge planning. Patient gave informed consent to start [place] at 300 mg BID for Bipolar Disorder. Patient was continued with [facility] protocol for alcohol withdrawal. Hydroxyzine PRN for anxiety for initial days of hospitalization. Patient was monitored and followed up for improvement and side effects.Patient during initial days of hospitalization was hyperthymic, greets me enthusiastically and gives effusive praise to the unit and what we've done for her so far. Patient continued to have a hard time sleeping. And her speech was somewhat pressured. Patient was compliant with her medications, no reported side effects. Patient detoxed smoothly from alcohol withdrawal with help of [facility]. Patient later reported improvement in her anxiety and mood instability. Patient was less hyperactive, less racing thoughts. Patient reported limited sleep improvement with addition of Seroquel at bedtime. Patient eating was fair. patient was attending groups and participated in the milieu. Patient was cooperative with staff. Patient behavior was in control and safe on all checks. Patient was reporting no suicidal or homicidal ideation. No psychotic symptoms of delusions or hallucinations. Patient's medications were adjusted further with increment in [place] to 300 mg QAM and 600mg at Bedtime to address mood stabilization. Patient Seroquel was also increased to 75 and then 100 mg at Bedtime to address sleep and augment mood stabilization. Patient was also started on Naltrexone 50 mg PO QAM to help with alcohol craving and urges. Patient reports further improvement and stability in her mood and anxiety. Patient was in good control and safe on all checks, utilized privileges appropriately including staff pass. Patient was compliant with treatment and was willing to follow up outpatient. Patient requested decrease in Seroquel back to 50 mg at bedtime on the day of discharged as she was feeling sedated during morning hours. Patient [place] level was obtained after two doses of 900mg a day and was 0.99 and did not report any adverse effects. Patient wanted to be discharged and did not meet criteria for involuntary hospitalization. Patient was discussed with team, was not a danger to self and others and caring for herself. Hence patient was discharged with plan to follow up outpatient. Patient's discharge medications were changed to [place] 300mg QAM and 450 QHS with plan to follow up outpatient psychiatrist for further adjustment in [place] dose if required. Merits Inpatient Hospitalization: No Clear for Discharge: Adequate Clinical Respons, Acceptable Safety Profile, Low Utility of Inpt Care Inpatient DSM-V Dx: F31.63 Discharge Planning - Discharge Planning Discharge Plan: Outpatient Follow Up Recommendations for Continuing Care: Medication Management, Psychotherapy, Substance Abuse Counseling Medications: Current Medications Folic Acid (Folvite Tab*) 1 mg PO DAILY [facility] Last Admin: 03/14/18 08:57 Dose: 1 mg [place] Carbonate ([place] Carbonate Tab*) 300 mg PO QAM [facility] Last Admin: 03/14/18 08:57 Dose: 300 mg [place] Carbonate ([place] Carbonate Tab*) 450 mg PO BEDTIME [facility] Multivitamins (Theragran Tab*) 1 tab PO DAILY [facility] Last Admin: 03/14/18 08:58 Dose: 1 tab Naltrexone HCl (Naltrexone Tab*) 50 mg PO DAILY [facility]; Protocol Last Admin: 03/14/18 08:57 Dose: 50 mg Quetiapine Fumarate (Seroquel Tab*) 100 mg PO BEDTIME [facility] Last Admin: 03/13/18 22:01 Dose: 100 mg Thiamine HCl (Vitamin B-1 Tab*) 100 mg PO DAILY [facility] Last Admin: 03/14/18 08:58 Dose: 100 mg Discharge Planning: Prescriptions provided for discharge [x] Yes [] No Follow up care details as per social work arrangements. Patient response to discharge plan: [x] eager for discharge [] agreeable with discharge plan [] ambivalent about discharge [] disagrees with discharge today
[2018-03-14] MEDS ORDERED: Lithium Carbonate TAB* 300 MG PO SCH (21:00)
== END 2018-03-14 12:20 | disposition home or self-care (01) | DRG 753 ==
LOC: ED 10:50 → BSU 18:58
PROVIDERS: ADMIT Psychiatry & Neurology Psychiatry; ATTEND Psychiatry & Neurology Psychiatry
DX: F31.63 Bipolar disorder, current episode mixed, severe, without psychotic features (principal); R45.851 Suicidal ideations; F41.9 Anxiety disorder, unspecified; F17.210 Nicotine dependence, cigarettes, uncomplicated; F10.10 Alcohol abuse, uncomplicated; F12.10 Cannabis abuse, uncomplicated; Y90.9 Presence of alcohol in blood, level not specified; Z86.19 Personal history of other infectious and parasitic diseases; Z82.49 Family history of ischemic heart disease and other diseases of the circulatory system; Z81.8 Family history of other mental and behavioral disorders; Z81.1 Family history of alcohol abuse and dependence
CPT/HCPCS: 36415; 80053; 80061; 80178; 80307; 80320; 80329; 81003; 83036; 84443; 85025; 90686; 96102; 99222; 99231; 99283; A9270-GY; G0480

== ENCOUNTER 2018-08-04 11:00 | Emergency (ER) | payer OTHER ==
[2018-08-04] MEDS ORDERED: NS 0.9% 1000 ML** 1,000 ML IV ONE (12:09)
--- NOTE | 2018-08-04 12:16 | ED ---
Abdominal Pain/Female - HPI Summary HPI Summary: This patient is a 32 year old female presenting to [facility] accompanied by family with a chief complaint of abd pain since around 0600 this morning. Patient states that she woke up this morning to let her dog out of the house, felt two pops near the ovaries, and suddenly had pain around her lower abd and lower back. Patient states that her cramps are abnormally bad and is concerned because of a past cervical cancer scare. Patient states that she woke up this morning in the position due to pain. The pain is rated 7/10 in severity. Symptoms aggravated by nothing. Symptoms alleviated by nothing. The patient treated the sx with Tylenol at 0600 to mild relief. Patient additionally notes nausea. Patient denies diarrhea, vomiting - History of Current Complaint Chief Complaint: EDVaginalBleeding Stated Complaint: OVARY PAIN/BACK PAIN PER PT Time Seen by Provider: 08/04/18 11:28 Hx Obtained From: Patient Hx Last Menstrual Period: 2 weeks ago Onset/Duration: Sudden Onset, Lasting Hours, Still Present Timing: Constant Severity Currently: Moderate Pain Intensity: 7 Pain Scale Used: 0-10 Numeric Location: Suprapubic Radiates: Yes Radiates to: Back Aggravating Factor(s): Nothing Alleviating Factor(s): Nothing Associated Signs and Symptoms: Positive: Negative - diarrhea, vomiting, Other: - nausea Allergies/Adverse Reactions: Allergies Allergy/AdvReac Type Severity Reaction Status Date / Time No Known Allergies Allergy Verified 08/04/18 11:04 PMH/Surg Hx/FS Hx/Imm Hx Previously Healthy: No Endocrine/Hematology History: Reports: Hx Anemia - ANEMIC DURING -FINE RECENTLY Denies: Hx Anticoagulant Therapy, Hx Blood Disorders, Hx Blood Transfusions, Hx Bone Marrow Disease, Hx Diabetes, Hx Systemic Lupus Erythematosus, Hx Sickle Cell Disease, Hx Thyroid Disease, Hx Unexplained Bleeding Cardiovascular History: Denies: Hx Congestive Heart Failure, Hx Deep Vein Thrombosis, Hx Hypertension , Hx Myocardial Infarction, Hx Pacemaker/ICD Respiratory History: Denies: Hx Asthma, Hx Chronic Obstructive Pulmonary Disease (COPD), Hx Lung Cancer, Hx Pneumonia, Hx Pulmonary Embolism GI History: Reports: Hx Gastroesophageal Reflux Disease - during pregnancies Denies: Hx Gall Bladder Disease, Hx Gastrointestinal Bleed, Hx Ulcer, Hx Urosepsis History: Denies: Hx Kidney Stones, Hx Renal Disease, Other Problems/Disorders Musculoskeletal History: Reports: Hx Back Problems Sensory History: Reports: Hx Contacts or Glasses Denies: Hx Hearing Aid Opthamlomology History: Reports: Hx Contacts or Glasses Neurological History: Reports: Hx Headaches, Hx Migraine Denies: Hx Dementia, Hx Developmental Delay, Hx Nerve Disease, Hx Seizures, Hx Spinal Cord Injury, Hx Transient Ischemic Attacks (TIA) Psychiatric History: Reports: Hx Anxiety, Hx Depression, Hx Panic Disorder, Hx Post Traumatic Stress Disorder, Hx Bipolar Disorder, Hx of Violent Episodes Against Others, Hx Substance Abuse, Other Psychiatric Issues/Disorders - bipolar , substance abuse Denies: Hx Eating Disorder, Hx Inpatient Treatment, Hx Schizophrenia, Hx Suicide Attempt - Surgical History Surgery Procedure, Year, and Place: 2 DAYS OLD-REMOVED EXTRA THUMB. 2009 [place] [facility] [place] Tubal [place] Hx Anesthesia Reactions: No - Immunization History Date of Tetanus Vaccine: Unk Date of Influenza Vaccine: None Infectious Disease History: No Infectious Disease History: Reports: History Other Infectious Disease - VIRAL MENINGITIS 2008 Denies: Hx Clostridium Difficile, Hx Hepatitis, Hx Human Immunodeficiency Virus (HIV), Hx of Known/Suspected MRSA, Hx Shingles, Hx Tuberculosis, Hx Known/ Suspected VRE, Hx Known/Suspected VRSA, Traveled Outside the [place] in Last 30 Days - Family History Known Family History: Positive: Cardiac Disease - Grandfather of [place] in 60s , Other - Negative malignant hyperthermia, negative adverse anesthesia reaction Negative: Hypertension, Diabetes - Social History Lives: With Family Alcohol Use: Occasionally Alcohol Amount: reports drinking at least 2 x this week, hungover today Hx Substance Use: No Substance Use Type: Reports: None Hx Tobacco Use: Yes Smoking Status (MU): Light Every Day Tobacco Smoker Type: Cigarettes Amount Used/How Often: 1/2ppd Length of Time of Smoking/Using Tobacco: 18 years Have You Smoked in the Last Year: Yes Review of Systems Negative: Fever Positive: Abdominal Pain, Nausea. Negative: Vomiting, Diarrhea Genitourinary: Other - back pain All Other Systems Reviewed And Are Negative: Yes Physical Exam - Summary Physical Exam Summary: Constitutional: Well-developed, Well-nourished, Alert. Skin: Warm, Dry HENT: Normocephalic; Atraumatic Eyes: Conjunctiva normal Neck: Musculoskeletal ROM normal neck. Cardio: Rhythm regular, rate normal, Heart sounds normal; Intact distal pulses; The pedal pulses are 2+ and symmetric. Radial pulses are 2+ and symmetric. Pulmonary/Chest wall: Effort normal. Abd: Soft, Musculoskeletal: Neuro: Alert, Oriented x3 Psych: Mood and affect Normal Triage Information Reviewed: Yes Vital Signs On Initial Exam: Initial Vitals Temp Pulse Resp BP Pulse Ox 97.5 F 93 14 130/87 100 08/04/18 11:04 08/04/18 11:04 08/04/18 11:04 08/04/18 11:04 08/04/18 11:04 Vital Signs Reviewed: Yes Diagnostics - Vital Signs Vital Signs Temp Pulse Resp BP Pulse Ox 08/04/18 11:28 98 17 129/87 100 08/04/18 11:04 97.5 F 93 14 130/87 100 - Laboratory Result Diagrams: 08/04/18 12:18 08/04/18 12:17 Lab Statement: Any lab studies that have been ordered have been reviewed, and results considered in the medical decision making process. - CT CT Abd/Pel CT Interpretation Completed By: Radiologist Summary of CT Findings: CT Abd/Pel reveals, per radiologist, IMPRESSION: 1. NO EVIDENCE FOR ACUTE INTRA-ABDOMINAL ABNORMALITY. 2. HEPATIC STEATOSIS. ED physician has reviewed this radiology report. - Additional Comments Diagnostic Additional Comments: Us Pelvis reveals, per radiologist, IMPRESSION: NEGATIVE EXAM, NO EVIDENCE FOR OVARIAN TORSION. ED physician has reviewed this radiology report. Re-Evaluation - Re-Evaluation First Eval Re-Evaluation Time: 16:52 Change: Improved Comment: Shared imaging results with patient. She still has lingering minor pain , but is feeling much better. Abdominal Pain Fem Course/Dx - Course Course Of Treatment: This patient is a 32 year old female presenting to [facility] accompanied by family with a chief complaint of abd pain since around 0600 this morning. Patient states that she woke up this morning to let her dog out of the house, felt two pops near the ovaries, and suddenly had pain around her lower abd and lower back. Patient states that her cramps are abnormally bad and is concerned because of a past cervical cancer scare. Patient states that she woke up this morning in the position due to pain. CT Abd/Pel reveals, per radiologist, IMPRESSION: 1. NO EVIDENCE FOR ACUTE INTRA-ABDOMINAL ABNORMALITY. 2. HEPATIC STEATOSIS. ED physician has reviewed this radiology report. Us Pelvis reveals, per radiologist, IMPRESSION: NEGATIVE EXAM, NO EVIDENCE FOR OVARIAN TORSION. ED physician has reviewed this radiology report. Bloodwork Obtained. Urinalysis Obtained. In the ED course the patient was given NS 0.9% bolus IV, Toradol, Iohexol, Flexeril. The pt is hemodynamically stable, alert and oriented x3. Patient will be discharged with a dx of abd pain. Patient is advised to follow up with PCP in 3 days. The patient is agreeable with this plan. - Diagnoses Provider Diagnoses: Abdominal pain Discharge - Sign-Out/Discharge Documenting (check all that apply): Patient Departure Patient Received Moderate/Deep Sedation with Procedure: No - Discharge Plan Condition: Stable Disposition: HOME Prescriptions: Cyclobenzaprine TAB* [Flexeril 10 MG TAB*] 10 mg PO TID PRN #15 tab PRN Reason: Pain Patient Education Materials: Abdominal Pain (ED) Print Language: TURKMEN Referrals: Alexandrea Luz MD [Primary Care Provider] - - Billing Disposition and Condition Condition: STABLE Disposition: Home - Attestation Statements Document Initiated by Sindhu: Yes Documenting Scribe: Aaliyah Bridges Provider For Whom Sindhu is Documenting (Include Credential): Emmanuelle Yip MD Scribe Attestation: Aaliyah Carpenter scribed for Emmanuelle Trivedi MD on 08/04/18 at 2132. Scribe Documentation Reviewed: Yes Provider Attestation: The documentation as recorded by the Aaliyah diaz accurately reflects the service I personally performed and the decisions made by me, Emmanuelle Trivedi MD Status of Scribe Document: Viewed
[2018-08-04 12:32] LABS: ABS Basophils 0 10^3/ul (0-0.2); ABS Eosinophils 0 10^3/ul (0-0.6); ABS Lymphocytes 1.7 10^3/ul (1.0-4.8); ABS Monocytes 0.3 10^3/ul (0-0.8); ABS Nucleated RBC 0 10^3/ul; Eosinophil % 0.5 %; Hematocrit 42 % (33-41); Hemoglobin 14.1 g/dL (12.0-16.0); Lymphocyte % 23.6 %; Mean Corpuscular HGB Conc 34 g/dL (31-36); Mean Corpuscular Hemoglobin 32 pg (27-31); Mean Corpuscular Volume 95 fL (80-97); Mean Platelet Volume 7.2 fL (7.4-10.4); Nucleated Red Blood Cells % 0; Platelet Count 265 10^3/uL (150-450); Red Blood Count 4.39 10^6 /uL (3.70-4.87); Red Cell Distribution Width 14 % (10.5-15); White Blood Count 7.1 10^3/uL (3.5-10.8)
[2018-08-04 12:48] LABS: ALT 10 U/L (7-52); AST 20 U/L (13-39); Albumin 4.5 g/dL (3.2-5.2); Albumin/Globulin Ratio 1.6 (1-3); Alkaline Phosphatase 57 U/L (34-104); Anion Gap 4 mmol/L (2-11); Blood Urea Nitrogen 12 mg/dL (6-24); CO2 Carbon Dioxide 25 mmol/L (22-32); Chloride 108 mmol/L (101-111); EGFR Non-African American 117.4 (>60); Globulin 2.9 g/dL (2-4); Glucose 107 mg/dL (70-100); Potassium 4.4 mmol/L (3.5-5.0); Sodium 137 mmol/L (135-145); Total Protein 7.4 g/dL (6.4-8.9)
[2018-08-04 12:55] LABS: HCG Pregnancy < 0.60 mIU/mL
[2018-08-04 13:18] LABS: Urine Appearance Clear; Urine Bilirubin Negative (Negative); Urine Blood Negative (Negative); Urine Color Colorless; Urine Glucose Negative (Negative); Urine Ketones Negative (Negative); Urine Nitrite Negative (Negative); Urine Protein Negative (Negative); Urine Specific Gravity 1.004 (1.010-1.030); Urine Urobilinogen Negative (Negative)
[2018-08-04] MEDS ORDERED: Cyclobenzaprine TAB* 10 MG PO ONE (13:41)
[2018-08-04] MEDS ORDERED: Ketorolac INJ* 30 MG/ML 1 ML VIAL IV PUSH ONE (13:41)
[2018-08-04] MEDS ORDERED: Iohexol 300* (CONTRAST) 10 ML SDV IV ONE (16:01)
[2018-08-04 17:42] VITALS: BP 112/65
== END 2018-08-04 17:41 | disposition home or self-care (01) ==
LOC: ED 11:00
DX: R10.30 Lower abdominal pain, unspecified (principal); F41.9 Anxiety disorder, unspecified; F32.9 Major depressive disorder, single episode, unspecified; F17.210 Nicotine dependence, cigarettes, uncomplicated
CPT/HCPCS: 36415; 74177; 76856; 80053; 81003; 84702; 85025; 86850; 86900; 86901; 96361; 96374; 96375; 99284; A9270-GY; J1885; Q9967

== ENCOUNTER 2018-09-10 21:54 | Emergency (ER) | payer OTHER ==
[2018-09-10 22:51] LABS: ABS Eosinophils 0.1 10^3/ul (0-0.6); ABS Lymphocytes 2.1 10^3/ul (1.0-4.8); ABS Monocytes 0.4 10^3/ul (0-0.8); ABS Neutrophils 4.7 10^3/ul (1.5-7.7); Eosinophil % 0.8 %; Hematocrit 39 % (35-47); Hemoglobin 12.9 g/dL (12.0-16.0); Lymphocyte % 28.4 %; Mean Corpuscular HGB Conc 34 g/dL (31-36); Mean Corpuscular Hemoglobin 32 pg (27-31); Mean Corpuscular Volume 95 fL (80-97); Mean Platelet Volume 7.5 fL (7.4-10.4); Platelet Count 211 10^3/uL (150-450); Red Blood Count 4.05 10^6 /uL (3.70-4.87); Red Cell Distribution Width 13 % (10.5-15); White Blood Count 7.3 10^3/uL (3.5-10.8)
[2018-09-10 23:06] LABS: ALT 62 U/L (7-52); AST 77 U/L (13-39); Albumin 4.7 g/dL (3.2-5.2); Albumin/Globulin Ratio 1.5 (1-3); Alkaline Phosphatase 55 U/L (34-104); Anion Gap 5 mmol/L (2-11); Blood Urea Nitrogen 15 mg/dL (6-24); C Reactive Protein 1.74 mg/L (<8.01); CO2 Carbon Dioxide 29 mmol/L (22-32); Calcium 10.3 mg/dL (8.6-10.3); Chloride 102 mmol/L (101-111); EGFR African American 109.1 (>60); EGFR Non-African American 90.1 (>60); Globulin 3.1 g/dL (2-4); Glucose 106 mg/dL (70-100); Potassium 4.6 mmol/L (3.5-5.0); Sodium 136 mmol/L (135-145); Total Protein 7.8 g/dL (6.4-8.9)
[2018-09-10 23:13] LABS: HCG Pregnancy < 0.60 mIU/mL
--- NOTE | 2018-09-10 23:38 | ED ---
Abdominal Pain/Female - HPI Summary HPI Summary: Patient complains of sudden onset umbilical pain while lifting something at work today to 30 p.m. States pain is constant, worse with eating, palpation. Associated with nausea. Denies fever, cough, sore throat, CP, SOB, abdominal pain, V/D, change in urine, change in BM. Medical history is none. - History of Current Complaint Chief Complaint: EDAbdPain Stated Complaint: HERNIA PER PT Time Seen by Provider: 09/10/18 22:19 Hx Obtained From: Patient Hx Last Menstrual Period: 09/02/18 Onset/Duration: Sudden Onset Timing: Constant Severity Initially: Severe Severity Currently: Severe Pain Intensity: 8 Pain Scale Used: 0-10 Numeric Location: Umbilical Radiates: No Character: Sharp Aggravating Factor(s): Food, Movement Alleviating Factor(s): Position Associated Signs and Symptoms: Positive: Nausea Allergies/Adverse Reactions: Allergies Allergy/AdvReac Type Severity Reaction Status Date / Time No Known Allergies Allergy Verified 09/10/18 22:00 PMH/Surg Hx/FS Hx/Imm Hx Endocrine/Hematology History: Reports: Hx Anemia - ANEMIC DURING -FINE RECENTLY Denies: Hx Anticoagulant Therapy, Hx Blood Disorders, Hx Blood Transfusions, Hx Bone Marrow Disease, Hx Diabetes, Hx Systemic Lupus Erythematosus, Hx Sickle Cell Disease, Hx Thyroid Disease, Hx Unexplained Bleeding Cardiovascular History: Denies: Hx Congestive Heart Failure, Hx Deep Vein Thrombosis, Hx Hypertension , Hx Myocardial Infarction, Hx Pacemaker/ICD Respiratory History: Denies: Hx Asthma, Hx Chronic Obstructive Pulmonary Disease (COPD), Hx Lung Cancer, Hx Pneumonia, Hx Pulmonary Embolism GI History: Reports: Hx Gastroesophageal Reflux Disease - during pregnancies Denies: Hx Gall Bladder Disease, Hx Gastrointestinal Bleed, Hx Ulcer, Hx Urosepsis History: Denies: Hx Kidney Stones, Hx Renal Disease, Other Problems/Disorders Musculoskeletal History: Reports: Hx Back Problems Sensory History: Reports: Hx Contacts or Glasses Denies: Hx Hearing Aid Opthamlomology History: Reports: Hx Contacts or Glasses Neurological History: Reports: Hx Headaches, Hx Migraine Denies: Hx Dementia, Hx Developmental Delay, Hx Nerve Disease, Hx Seizures, Hx Spinal Cord Injury, Hx Transient Ischemic Attacks (TIA) Psychiatric History: Reports: Hx Anxiety, Hx Depression, Hx Panic Disorder, Hx Post Traumatic Stress Disorder, Hx Bipolar Disorder, Hx of Violent Episodes Against Others, Hx Substance Abuse, Other Psychiatric Issues/Disorders - bipolar , substance abuse Denies: Hx Eating Disorder, Hx Inpatient Treatment, Hx Schizophrenia, Hx Suicide Attempt - Surgical History Surgery Procedure, Year, and Place: 2 DAYS OLD-REMOVED EXTRA THUMB. 2009 EMERGENCY D&C, [facility] – [place]. 2013 Tubal ligation Hx Anesthesia Reactions: No - Immunization History Date of Tetanus Vaccine: Unk Date of Influenza Vaccine: None Infectious Disease History: No Infectious Disease History: Reports: History Other Infectious Disease - VIRAL MENINGITIS 2009 Denies: Hx Clostridium Difficile, Hx Hepatitis, Hx Human Immunodeficiency Virus (HIV), Hx of Known/Suspected MRSA, Hx Shingles, Hx Tuberculosis, Hx Known/ Suspected VRE, Hx Known/Suspected VRSA, Traveled Outside the [place] in Last 30 Days - Family History Known Family History: Positive: Cardiac Disease - Grandfather of [place] in 60s , Other - Negative malignant hyperthermia, negative adverse anesthesia reaction Negative: Hypertension, Diabetes - Social History Alcohol Use: Rare Alcohol Amount: reports drinking at least 2 x this week, hungover today Hx Substance Use: No Substance Use Type: Reports: None Hx Tobacco Use: Yes Smoking Status (MU): Light Every Day Tobacco Smoker Type: Cigarettes Amount Used/How Often: 1/2ppd Length of Time of Smoking/Using Tobacco: 18 years Have You Smoked in the Last Year: Yes Review of Systems Constitutional: Negative Eyes: Negative ENT: Negative Cardiovascular: Negative Respiratory: Negative Positive: Abdominal Pain, Nausea Genitourinary: Negative Musculoskeletal: Negative Skin: Negative Neurological: Negative Psychological: Normal All Other Systems Reviewed And Are Negative: Yes Physical Exam - Summary Physical Exam Summary: Extreme reaction to palpation of the umbilicus. No hernia palpated. Abdominal exam otherwise unremarkable. Lung sounds clear to auscultation bilaterally. Triage Information Reviewed: Yes Vital Signs On Initial Exam: Initial Vitals Temp Pulse Resp BP Pulse Ox 97.7 F 71 16 135/93 98 09/10/18 22:00 09/10/18 22:00 09/10/18 22:00 09/10/18 22:00 09/10/18 22:00 Vital Signs Reviewed: Yes Appearance: Positive: Well-Appearing Skin: Positive: Warm Head/Face: Positive: Normal Head/Face Inspection Eyes: Positive: Normal Neck: Positive: Supple Respiratory/Lung Sounds: Positive: Clear to Auscultation Cardiovascular: Positive: Normal Abdomen Description: Positive: Other: Musculoskeletal: Positive: Normal Neurological: Positive: Normal Psychiatric: Positive: Normal AVPU Assessment: Alert - Jill Coma Scale Best Eye Response: 4 - Spontaneous Best Motor Response: 6 - Obeys Commands Best Verbal Response: 5 - Oriented Coma Scale Total: 15 Diagnostics - Vital Signs Vital Signs Temp Pulse Resp BP Pulse Ox 09/10/18 22:13 83 100 09/10/18 22:11 82 148/103 99 09/10/18 22:00 97.7 F 71 16 135/93 98 - Laboratory Lab Results: Lab Results 09/10/18 09/10/18 Range/Units 22:40 22:40 WBC 7.3 (3.5-10.8) 10^3/uL RBC 4.05 (3.70-4.87) 10^6 /uL Hgb 12.9 (12.0-16.0) g/dL Hct 39 (35-47) % MCV 95 (80-97) fL MCH 32 H (27-31) pg MCHC 34 (31-36) g/dL RDW 13 (10.5-15) % Plt Count 211 (150-450) 10^3/uL MPV 7.5 (7.4-10.4) fL Neut % (Auto) 64.8 % Lymph % (Auto) 28.4 % Kinney % (Auto) 5.6 % Eos % (Auto) 0.8 % Baso % (Auto) 0.4 % Absolute Neuts (auto) 4.7 (1.5-7.7) 10^3/ul Absolute Lymphs (auto) 2.1 (1.0-4.8) 10^3/ul Absolute Monos (auto) 0.4 (0-0.8) 10^3/ul Absolute Eos (auto) 0.1 (0-0.6) 10^3/ul Absolute Basos (auto) 0.0 (0-0.2) 10^3/ul Absolute Nucleated RBC 0.0 10^3/ul Nucleated RBC % 0.0 Sodium 136 (135-145) mmol/L Potassium 4.6 (3.5-5.0) mmol/L Chloride 102 (101-111) mmol/L Carbon Dioxide 29 (22-32) mmol/L Anion Gap 5 (2-11) mmol/L BUN 15 (6-24) mg/dL Creatinine 0.75 (0.51-0.95) mg/dL Est GFR ( Amer) 109.1 (>60) Est GFR (Non-Af Amer) 90.1 (>60) BUN/Creatinine Ratio 20.0 (8-20) Glucose 106 H (70-100) mg/dL Calcium 10.3 (8.6-10.3) mg/dL Total Bilirubin 0.30 (0.2-1.0) mg/dL AST 77 H (13-39) U/L ALT 62 H (7-52) U/L Alkaline Phosphatase 55 (34-104) U/L C-Reactive Protein 1.74 (<8.01) mg/L Total Protein 7.8 (6.4-8.9) g/dL Albumin 4.7 (3.2-5.2) g/dL Globulin 3.1 (2-4) g/dL Albumin/Globulin Ratio 1.5 (1-3) Beta HCG, Quant < 0.60 mIU/mL Result Diagrams: 09/10/18 22:40 09/10/18 22:40 Lab Statement: Any lab studies that have been ordered have been reviewed, and results considered in the medical decision making process. Abdominal Pain Fem Course/Dx - Course Course Of Treatment: Patient complains of sudden onset umbilical pain while lifting something at work today to 30 p.m. States pain is constant, worse with eating, palpation. Associated with nausea. Denies fever, cough, sore throat, CP, SOB, abdominal pain, V/D, change in urine, change in BM. Medical history is none. Physical exam:Extreme reaction to palpation of the umbilicus. No hernia palpated. Abdominal exam otherwise unremarkable. Lung sounds clear to auscultation bilaterally. Vital signs within normal limits. Labs unremarkable. Abdominal Ultrasound cannot rule out incarcerated hernia. CT abdomen and pelvis without contrast positive for fat-containing hernia, negative for incarcerated or strangulated bowel containing hernia. Rx for oxycodone. Follow-up with surgery Dr. Ochoa. Patient understands and improves with plan. - Diagnoses Provider Diagnoses: Umbilical hernia Discharge - Sign-Out/Discharge Documenting (check all that apply): Patient Departure Patient Received Moderate/Deep Sedation with Procedure: No - Discharge Plan Condition: Stable Disposition: HOME Prescriptions: Oxycodone HCl 5 mg PO TID 2 Days #6 tablet MDD 3 tabs Patient Education Materials: Umbilical Hernia (ED) Forms: *Work Release Referrals: Alexandrea Luz MD [Primary Care Provider] - Benjamin West MD [Medical Doctor] - Additional Instructions: If pain persists follow-up with surgery Dr. West for further evaluation. Return to the ED for any new or worsening symptoms. - Billing Disposition and Condition Condition: STABLE Disposition: Home
[2018-09-10] MEDS ORDERED: Morphine 4 MG/ML VIAL (1 ml) 4 MG/ML VIAL IV ONE (23:50)
[2018-09-10] MEDS ORDERED: NS 0.9% 1000 ML** 1,000 ML IV ONE (23:50)
[2018-09-11] MEDS ORDERED: Morphine 4 MG/ML VIAL (1 ml) 4 MG/ML VIAL IV ONE (01:06)
[2018-09-11 02:27] VITALS: BP 141/87
--- NOTE | 2018-09-11 04:12 | CONSULT ---
Consult Consult: I supervised the care of the physician assistant child care teacher and I performed a history and physical on this patient. History: Pain developed in the umbilical region after feeling a pop tonight. Physical exam: Small umbilical hernia with tenderness, no redness. Plan: Ultrasound consistent with incarcerated hernia. Evaluate with CT. CT shows no bowel. Outpatient follow-up with surgeon.
== END 2018-09-11 02:20 | disposition home or self-care (01) ==
LOC: ED 21:54
DX: K42.9 Umbilical hernia without obstruction or gangrene (principal); F17.210 Nicotine dependence, cigarettes, uncomplicated; F32.9 Major depressive disorder, single episode, unspecified; F41.9 Anxiety disorder, unspecified; K21.9 Gastro-esophageal reflux disease without esophagitis
CPT/HCPCS: 36415; 74176; 76705; 80053; 84702; 85025; 86140; 96361; 96374; 96375; 99283; J2270

== ENCOUNTER 2018-10-12 06:58 | Day surgery (SDC) | payer OTHER ==
[~2018-10-12 06:58] MED LIST: Buffered Lidocaine 1% SYRIN* 1 ML/SYRINGE INTRADERM ONE; Lactated Ringers 1000 ML Bag* 1,000 ML IV SCH
[2018-10-12] MEDS ORDERED: ceFAZolin 2 GM in NS PREMIX(*) 2 GM/100 ML BAG IVPB ONE (07:28)
[2018-10-12] MEDS ORDERED: Bupivacaine 0.25% EPI 200,000* 30 ML SDV ONE (08:08)
[2018-10-12] MEDS ORDERED: Lidocaine 1% INJ* 10 MG/ML 30 ML SDV ONE (08:08)
[2018-10-12] MEDS ORDERED: Midazolam* 1 MG/ML 5 ML VIAL (5 MG) ONE ×2 (08:22→08:48)
[2018-10-12] MEDS ORDERED: fentaNYL* 50 MCG/ML 2 ML VIAL (100 MCG VIAL) ONE (08:31)
[2018-10-12] MEDS ORDERED: Propofol* 10 MG/ML 20 ML BTL ONE ×2 (08:42→09:25)
[2018-10-12] MEDS ORDERED: KETAMINE HCL* 50 MG/ML 10 ML VIAL ONE (08:55)
[2018-10-12] MEDS ORDERED: Dexamethasone IV* 4 MG/ML 1 ML (4 MG) ONE (08:57)
[2018-10-12] MEDS ORDERED: Ondansetron INJ* 2 MG/ML VIAL ONE (09:22)
[2018-10-12] MEDS ORDERED: Ketorolac INJ* 30 MG/ML 1 ML VIAL ONE (09:22)
[2018-10-12] MEDS ORDERED: DiMENhydriNATE IV* 50 MG/ML VIAL IV PUSH PRN (09:27)
[2018-10-12] MEDS ORDERED: Ondansetron INJ* 2 MG/ML VIAL IV PRN (09:27)
[2018-10-12] MEDS ORDERED: Naloxone* 0.4 MG/ML 1 ML VIAL IV PRN (09:27)
[2018-10-12] MEDS ORDERED: oxyCODONE/Acetamin 5/325 MG* TAB PO PRN (09:27)
[2018-10-12] MEDS ORDERED: fentaNYL* 50 MCG/ML 2 ML VIAL (100 MCG VIAL) IV PRN (09:27)
[2018-10-12] MEDS ORDERED: HYDROmorphone INJ1* 1 MG/ML SYRINGE IV PRN (09:27)
[2018-10-12] MEDS ORDERED: oxyCODONE/Acetamin 5/325 MG* TAB ONE (10:26)
[2018-10-12 10:34] VITALS: BP 111/76
--- NOTE | 2018-10-12 11:37 | OP ---
DATE OF OPERATION: 10/12/18 [facility] DATE OF : 89 SURGEON: Benjamin West MD. ARCHITECTURAL MANAGER: Pallavi Carlson NP. ANESTHESIOLOGIST: Dr. Chirinos. ANESTHESIA: Local. PRE-OP DIAGNOSIS: Umbilical hernia. POST-OP DIAGNOSIS: Umbilical hernia. OPERATIVE PROCEDURE: Open repair of umbilical hernia with a 1.[address] Hernia Patch. ESTIMATED BLOOD LOSS: Minimal. WOUND CLASSIFICATION: 1. COMPLICATIONS: None. DRAINS: None. SPECIMENS: None. DESCRIPTION OF PROCEDURE: Written informed consent was obtained, the abdomen was marked with indelible ink, and preoperative antibiotics were administered. The patient was taken to the operating room and placed in the supine position. Sequential compression devices and warming blankets were applied. The abdomen was prepped and draped in the usual sterile fashion. Time-out verification was completed. Lidocaine 1% mixed with 0.25% Marcaine was infiltrated extensively in the periumbilical area and a small semicircular incision was made just above the umbilicus, carried down to the midline fascia. There was a small amount of preperitoneal fat protruding through what appeared to be a very small epigastric hernia about 4 mm above the umbilicus. I excised the umbilical skin off the underlying small amount of preperitoneal fat extending through a small umbilical hernia which also was only approximately 4 mm in diameter. The fat that had herniated up through both small hernias was excised and not sent for specimen. I then made a decision to open the small band of fascia bridging these 2 small hernias and this created a hernia of approximately 1 cm in size. The preperitoneal space was then developed sharply and bluntly and a 1.7 inch disk of mesh was placed in the preperitoneal space underneath the fascia and sutured with 2 separate 0 Ethibond horizontal mattress sutures superiorly and inferiorly using the straps that were attached to the mesh. The straps were then excised. The robinson fascia was closed in a transverse orientation with several interrupted 0 Vicryl sutures. Additional Marcaine was infiltrated. The subcutaneous tissue was closed in layers with subcutaneous and subcuticular 4-0 Vicryl suture. Steri-Strips and sterile dressings were applied. The patient tolerated the procedure well and was taken to the recovery room in stable condition. [id number]/[facility] #: [id number] [facility]
== END 2018-10-12 11:23 | disposition home or self-care (01) ==
LOC: OR 06:58
PROVIDERS: ATTEND Surgery
DX: K42.9 Umbilical hernia without obstruction or gangrene (principal); Z72.0 Tobacco use; F31.9 Bipolar disorder, unspecified; F19.11 Other psychoactive substance abuse, in remission
CPT/HCPCS: A9270-GY; C1781; J0690; J1100; J1885; J2250; J2405; J2704; J3010

== ENCOUNTER 2019-04-19 18:41 | Emergency (ER) | payer SELFPAY ==
[2019-04-19 19:16] VITALS: BP 130/95
--- NOTE | 2019-04-19 19:37 | UC ---
Complaint Female HPI - HPI Summary HPI Summary: 33 yo with tubal ligation, comes with 2-3 week history of bilateral abdominal pain. Menses began 2 days ago and is heavier than usual. States that she has been anemic in the past due to this. Last hgb in August 2018 was 12.9. History of ovarian cysts in the past but has not had medical or surgical intervention of these in the past. She is crying with pain at this time. 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 - here with her boyfriend Hx Last Menstrual Period: 04/17/19 Onset/Duration: Gradual Onset, Lasting Weeks Timing: Constant Severity Initially: Moderate Severity Currently: Moderate Pain Intensity: 8 Character: Cramping Aggravating Factor(s): Movement, [place] Associated Signs And Symptoms: Positive: Negative - Risk Factors Ectopic Risk Factor: Tubal Ligation Ovarian Torsion Risk Factor: Tubal Ligation - Allergies/Home Medications Allergies/Adverse Reactions: Allergies Allergy/AdvReac Type Severity Reaction Status Date / Time No Known Allergies Allergy Verified 04/19/19 19:16 PMH/Surg Hx/FS Hx/Imm Hx Previously Healthy: Yes GI/ History: Other - ovarian cysts Other History Of: Negative For: HIV, Hepatitis B, Hepatitis C, Anticoagulant Therapy - Surgical History Surgical History: Yes Surgery Procedure, Year, and Place: 2 DAYS OLD-REMOVED EXTRA THUMB 1987. 2008 EMERGENCY D&C, [facility] [place]. 2013 Tubal ligation [facility] [place], DR. GONSALEZ. double hernia [facility] 2019 - Family History Known Family History: Positive: Cardiac Disease - Grandfather of [place] in 60s , Other - Negative malignant hyperthermia, negative adverse anesthesia reaction Negative: Hypertension, Diabetes - Social History Occupation: Employed Full-time - SAHM Lives: With Family Alcohol Use: None Alcohol Amount: 2 BEERS WEEKLY Substance Use Type: None Substance Use Comment - Amount & Last Used: PAST SUBSTANCE COCAINE AND MARIJUANA 2012 Smoking Status (MU): Current Some Day Smoker Type: Cigarettes Amount Used/How Often: 1/2ppd Length of Time of Smoking/Using Tobacco: 18 years Have You Smoked in the Last Year: Yes Household Exposure Type: Cigarettes - Immunization History Most Recent Influenza Vaccination: 03/09/18 Most Recent Pneumonia Vaccination: never Review of Systems All Other Systems Reviewed And Are Negative: Yes Constitutional: Positive: Negative Skin: Positive: Negative Eyes: Positive: Negative ENT: Positive: Negative Respiratory: Positive: Negative Cardiovascular: Positive: Negative Gastrointestinal: Positive: Abdominal Pain Genitourinary: Positive: Vaginal/Penile Pain Motor: Positive: Decreased ROM Neurovascular: Positive: Negative Musculoskeletal: Positive: Negative Neurological: Positive: Negative Psychological: Positive: Anxious Is Patient Immunocompromised?: No Physical Exam Triage Information Reviewed: Yes Appearance: Pain Distress - moderate: lying on exam table and tearful at times. Vital Signs: Initial Vital Signs Temp 98.1 F 04/19/19 19:11 Pulse 100 04/19/19 19:11 Resp 18 04/19/19 19:11 BP 130/95 04/19/19 19:11 Pulse Ox 100 04/19/19 19:11 Vital Signs Reviewed: Yes ENT: Positive: Pharynx normal Neck: Positive: Supple, Nontender, No Lymphadenopathy Respiratory: Positive: Lungs clear, Normal breath sounds Cardiovascular: Positive: RRR, No Murmur Abdomen Description: Positive: Soft, Guarding - voluntary guarding throughout the exam Pelvic Exam: Positive: Other - deferred at this time-->choosing to go to the ER for evaluation due to level of pain. Musculoskeletal Exam: Normal Neurological Exam: Normal Neurological: Positive: Alert Psychological Exam: Other - anxious and tearful Skin Exam: Normal Complaint Female Dx - Course Course Of Treatment: ibuprofen given for control of pain. Discussed, and given the need for imaging not available her, directed her to the emergency room. Her boyfriend will take her by private car. - Differential Dx/Diagnosis Differential Diagnosis/HQI/PQRI: Ovarian Cyst, Ovarian Torsion Provider Diagnosis: Lower abdominal pain - Physician Notifications Discussed Patient Care With: ladarius Sales nurse - advised will be coming by private car Time Discussed With Above Provider: 19:55 Instructed by Provider To: Will See In ED Discharge ED - Sign-Out/Discharge Documenting (check all that apply): Patient Departure All imaging exams completed and their final reports reviewed: No Studies - Discharge Plan Condition: Stable Disposition: TRANS [facility] Patient Education Materials: Acute Abdominal Pain (ED) Referrals: Alexandrea Luz MD [Primary Care Provider] - Additional Instructions: Please go directly to the emergency room for evaluation of possible ovarian cysts. You have had 600mg of ibuprofen. Please have only water prior to your evaluation there--do not eat before the assessment. - Billing Disposition and Condition Condition: STABLE Disposition: Trans Higher Lvl of Care Fac
[2019-04-19] MEDS ORDERED: Ibuprofen TAB* 600 MG PO ONE (19:38)
== END 2019-04-19 20:07 | disposition short-term general hospital (02) ==
LOC: UCEAST 18:41
DX: R10.30 Lower abdominal pain, unspecified (principal); F17.210 Nicotine dependence, cigarettes, uncomplicated
CPT/HCPCS: 84702; 99212; A9270-GY; G0463

== ENCOUNTER 2019-04-19 20:23 | Emergency (ER) | payer SELFPAY ==
[2019-04-19 22:10] LABS: ABS Lymphocytes 1.9 10^3/ul (1.0-4.8); ABS Monocytes 0.2 10^3/ul (0-0.8); ABS Neutrophils 3.2 10^3/ul (1.5-7.7); Eosinophil % 0.8 %; Hematocrit 38 % (35-47); Hemoglobin 13.2 g/dL (12.0-16.0); Lymphocyte % 35.5 %; Mean Corpuscular HGB Conc 35 g/dL (31-36); Mean Corpuscular Hemoglobin 34 pg (27-31); Mean Corpuscular Volume 97 fL (80-97); Mean Platelet Volume 6.4 fL (7.4-10.4); Platelet Count 264 10^3/uL (150-450); Red Blood Count 3.93 10^6 /uL (3.70-4.87); Red Cell Distribution Width 14 % (10-15); White Blood Count 5.5 10^3/uL (3.5-10.8)
[2019-04-19 22:28] LABS: ALT 18 U/L (7-52); AST 30 U/L (13-39); Albumin 4.5 g/dL (3.2-5.2); Albumin/Globulin Ratio 1.4 (1-3); Alkaline Phosphatase 45 U/L (34-104); Anion Gap 9 mmol/L (2-11); BUN/Creatinine Ratio 11.6 (8-20); Blood Urea Nitrogen 8 mg/dL (6-24); C Reactive Protein < 1.00 mg/L (<8.01); CO2 Carbon Dioxide 24 mmol/L (22-32); Calcium 9.2 mg/dL (8.6-10.3); Chloride 101 mmol/L (101-111); EGFR African American 120.1 (>60); EGFR Non-African American 99.2 (>60); Globulin 3.3 g/dL (2-4); Glucose 92 mg/dL (70-100); Sodium 134 mmol/L (135-145); Total Protein 7.8 g/dL (6.4-8.9)
[2019-04-19 22:35] LABS: HCG Pregnancy < 0.60 mIU/mL
[2019-04-20] MEDS ORDERED: Morphine 4 MG/ML VIAL (1 ml) 4 MG/ML VIAL IV ONE (00:45)
[2019-04-20] MEDS ORDERED: Ondansetron INJ* 2 MG/ML VIAL IV ONE (00:45)
[2019-04-20] MEDS ORDERED: NS 0.9% 1000 ML** 2,000 ML IV ONE (00:45)
--- NOTE | 2019-04-20 00:48 | ED ---
Abdominal Pain/Female - HPI Summary HPI Summary: This pt is a 33 Y/O F presenting to [facility] accompanied by her with a CC of suprapubic pain that started last night and has radiated to her entire abdomen since this morning. She states that she is currently on her period and states that the pain is much more severe than normal. She has had an increased vaginal bleeding during this cycle. She states that her cycles have not been uniform since her tubal ligation. She states that the pain has been present for the last 3 weeks and she has had N/V/D. She denies any fevers, chills, and diaphoresis. She states that she has aggravating symptoms with palpations. She states that OTC medications are alleviating her pain. She has a PMHx of a recent hernia repair, tubal ligation, and anemia. - History of Current Complaint Chief Complaint: EDAbdPain Stated Complaint: ABD PAIN PER PT Time Seen by Provider: 04/20/19 00:12 Hx Obtained From: Patient Hx Last Menstrual Period: 04/17/19 ?: No Onset/Duration: Sudden Onset, Lasting Weeks - 6 Timing: Constant Severity Initially: Moderate Severity Currently: Severe Pain Intensity: 8 Pain Scale Used: 0-10 Numeric Location: Diffuse, Suprapubic - started Character: Cramping Aggravating Factor(s): Food Alleviating Factor(s): Other: - OTC pain medications Associated Signs and Symptoms: Positive: Negative - chills, Vaginal Bleeding, Nausea, Vomiting, Diarrhea. Negative: Diaphoresis, Fever Allergies/Adverse Reactions: Allergies Allergy/AdvReac Type Severity Reaction Status Date / Time No Known Allergies Allergy Verified 04/19/19 20:34 PMH/Surg Hx/FS Hx/Imm Hx Previously Healthy: Yes Endocrine/Hematology History: Reports: Hx Anemia - ANEMIC DURING -FINE RECENTLY Denies: Hx Anticoagulant Therapy, Hx Blood Disorders, Hx Blood Transfusions, Hx Bone Marrow Disease, Hx Diabetes, Hx Systemic Lupus Erythematosus, Hx Sickle Cell Disease, Hx Thyroid Disease, Hx Unexplained Bleeding Cardiovascular History: Denies: Hx Congestive Heart Failure, Hx Deep Vein Thrombosis, Hx Hypertension , Hx Myocardial Infarction, Hx Pacemaker/ICD Respiratory History: Reports: Other Respiratory Problems/Disorders - current smoker Denies: Hx Asthma, Hx Chronic Obstructive Pulmonary Disease (COPD), Hx Lung Cancer, Hx Pneumonia, Hx Pulmonary Embolism GI History: Reports: Hx Gastroesophageal Reflux Disease - during pregnancies, Other GI Disorders - currently problems with constipation Denies: Hx Gall Bladder Disease, Hx Gastrointestinal Bleed, Hx Ulcer, Hx Urosepsis History: Denies: Hx Kidney Stones, Hx Renal Disease, Other Problems/Disorders Musculoskeletal History: Reports: Hx Back Problems Sensory History: Reports: Hx Contacts or Glasses - glasses Denies: Hx Hearing Aid Opthamlomology History: Reports: Hx Contacts or Glasses - glasses Neurological History: Reports: Hx Headaches, Hx Migraine Denies: Hx Dementia, Hx Developmental Delay, Hx Nerve Disease, Hx Seizures, Hx Spinal Cord Injury, Hx Transient Ischemic Attacks (TIA) Psychiatric History: Reports: Hx Anxiety, Hx Depression, Hx Panic Disorder, Hx Post Traumatic Stress Disorder, Hx Bipolar Disorder, Hx of Violent Episodes Against Others, Hx Substance Abuse, Other Psychiatric Issues/Disorders - bipolar , substance abuse Denies: Hx Eating Disorder, Hx Inpatient Treatment, Hx Schizophrenia, Hx Suicide Attempt - Cancer History Hx Chemotherapy: No Hx Radiation Therapy: No - Surgical History Surgical History: Yes Surgery Procedure, Year, and Place: 2 DAYS OLD-REMOVED EXTRA THUMB 1987. 2008 EMERGENCY D&C, [facility] [place]. 2012 Tubal ligation [facility] [place], DR. GONSALEZ. double hernia sugery November 2018 Hx Anesthesia Reactions: No - Immunization History Date of Tetanus Vaccine: Unk Date of Influenza Vaccine: None Immunizations Up to Date: Yes Infectious Disease History: No Infectious Disease History: Reports: History Other Infectious Disease - VIRAL MENINGITIS 2008 Denies: Hx Clostridium Difficile, Hx Hepatitis, Hx Human Immunodeficiency Virus (HIV), Hx of Known/Suspected MRSA, Hx Shingles, Hx Tuberculosis, Hx Known/ Suspected VRE, Hx Known/Suspected VRSA, Traveled Outside the [place] in Last 30 Days - Family History Known Family History: Positive: Cardiac Disease - Grandfather of [place] in 60s , Other - Negative malignant hyperthermia, negative adverse anesthesia reaction Negative: Hypertension, Diabetes - Social History Occupation: Unemployed Lives: With Family Alcohol Use: Occasionally Alcohol Amount: 2 BEERS WEEKLY Hx Substance Use: Yes Substance Use Type: Reports: Other - quit Substance Use Comment - Amount & Last Used: PAST SUBSTANCE COCAINE AND MARIJUANA 2012 Hx Tobacco Use: Yes Smoking Status (MU): Current Some Day Smoker Type: Cigarettes Amount Used/How Often: <1/2ppd Length of Time of Smoking/Using Tobacco: 18 years Have You Smoked in the Last Year: Yes Review of Systems Negative: Fever, Chills, Skin Diaphoresis Positive: Abdominal Pain - Started as suprapubic, radiated to entire abdomen, Vomiting, Diarrhea, Nausea Positive: other - increased vaginal bleeding Positive: Headache All Other Systems Reviewed And Are Negative: Yes Physical Exam - Summary Physical Exam Summary: Appearance: Well-appearing, Well-nourished, lying in bed comfortably Skin: Warm, dry, no obvious rash Eyes: sclera anicteric, no conjunctival pallor ENT: mucous membranes moist, pharynx appears normal Neck: Supple, nontender Respiratory: Clear to auscultation, no signs of respiratory distress Cardiovascular: Normal S1, S2. No murmurs. Normal distal pulses in tibial and radial bilaterally. Abdomen: Soft, nontender, normal active bowel sounds present, Generalized abdominal tenderness, no peritoneal signs when the pt is distracted Musculoskeletal: Normal, Strength/ROM Intact Neurological: A&Ox3, awake and alert, mentation is normal, speech is fluent and appropriate Psychiatric: affect is normal, does not appear anxious or depressed Triage Information Reviewed: Yes Vital Signs On Initial Exam: Initial Vitals Temp Pulse Resp BP Pulse Ox 97.2 F 97 16 142/104 98 04/19/19 20:28 04/19/19 20:28 04/19/19 20:28 04/19/19 20:28 04/19/19 20:28 Vital Signs Reviewed: Yes Procedures - Sedation Patient Received Moderate/Deep Sedation with Procedure: No Diagnostics - Vital Signs Vital Signs Temp Pulse Resp BP Pulse Ox 04/19/19 22:58 97.4 F 90 16 126/82 98 04/19/19 20:28 97.2 F 97 16 142/104 98 - Laboratory Lab Results: Lab Results 04/19/19 04/19/19 Range/Units 22:01 22:01 WBC 5.5 (3.5-10.8) 10^3/uL RBC 3.93 (3.70-4.87) 10^6 /uL Hgb 13.2 (12.0-16.0) g/dL Hct 38 (35-47) % MCV 97 (80-97) fL MCH 34 H (27-31) pg MCHC 35 (31-36) g/dL RDW 14 (10-15) % Plt Count 264 (150-450) 10^3/uL MPV 6.4 L (7.4-10.4) fL Neut % (Auto) 58.9 % Lymph % (Auto) 35.5 % [place] % (Auto) 4.4 % Eos % (Auto) 0.8 % Baso % (Auto) 0.4 % Absolute Neuts (auto) 3.2 (1.5-7.7) 10^3/ul Absolute Lymphs (auto) 1.9 (1.0-4.8) 10^3/ul Absolute Monos (auto) 0.2 (0-0.8) 10^3/ul Absolute Eos (auto) 0.0 (0-0.6) 10^3/ul Absolute Basos (auto) 0.0 (0-0.2) 10^3/ul Absolute Nucleated RBC 0.0 10^3/ul Nucleated RBC % 0.0 Sodium 134 L (135-145) mmol/L Potassium 4.0 (3.5-5.0) mmol/L Chloride 101 (101-111) mmol/L Carbon Dioxide 24 (22-32) mmol/L Anion Gap 9 (2-11) mmol/L BUN 8 (6-24) mg/dL Creatinine 0.69 (0.51-0.95) mg/dL Est GFR ( Amer) 120.1 (>60) Est GFR (Non-Af Amer) 99.2 (>60) BUN/Creatinine Ratio 11.6 (8-20) Glucose 92 (70-100) mg/dL Calcium 9.2 (8.6-10.3) mg/dL Total Bilirubin 0.30 (0.2-1.0) mg/dL AST 30 (13-39) U/L ALT 18 (7-52) U/L Alkaline Phosphatase 45 (34-104) U/L C-Reactive Protein < 1.00 (<8.01) mg/L Total Protein 7.8 (6.4-8.9) g/dL Albumin 4.5 (3.2-5.2) g/dL Globulin 3.3 (2-4) g/dL Albumin/Globulin Ratio 1.4 (1-3) Lipase 49 (11.0-82.0) U/L Beta HCG, Quant < 0.60 mIU/mL Result Diagrams: 04/19/19 22:01 04/19/19 22:01 Lab Statement: Any lab studies that have been ordered have been reviewed, and results considered in the medical decision making process. - Ultrasound Transvaginal US Ultrasound Interpretation Completed By: Radiologist Summary of Ultrasound Findings: 1. Left ovarian mass which should be further characterized with nonemergent pre-and postcontrast pelvic MRI. 2. Sonographically normal uterus and right ovary. ED physician has reviewed this report. Re-Evaluation - Re-Evaluation First Eval Re-Evaluation Time: 02:49 Change: Unchanged Comment: Pt reports that she is still in pain. CT A/P will be ordered. Abdominal Pain Fem Course/Dx - Course Course Of Treatment: This pt is a 33 Y/O F presenting to [facility] accompanied by her boyfriend with a CC of suprapubic pain that started last night and has radiated to her entire abdomen since this morning and is rated an 8/10 in severity. She states that the pain has been present for the last 3 weeks and she has had nausea and diarrhea. She denies any fevers, chills, and diaphoresis. She has a PMHx of tubal ligation, recent hernia repair in November 2018, and anemia. Her PE found that she had generalized abdominal tenderness, no peritoneal signs when the pt is distracted. Her transvaginal US found the followin. Left ovarian mass which should be further characterized with nonemergent pre-and postcontrast pelvic MRI. 2. Sonographically normal uterus and right ovary. The pt expressed a desire to be discharged home and refuses the CT A/P. She will be diagnosed with acute abdominal pain. - Diagnoses Provider Diagnoses: Acute abdominal pain Discharge ED - Sign-Out/Discharge Documenting (check all that apply): Patient Departure - discharge - Discharge Plan Condition: Good Disposition: HOME Patient Education Materials: Acute Abdominal Pain (ED) Referrals: Alexandrea Luz MD [Primary Care Provider] - Additional Instructions: We have not been able to find the cause of your pain with the blood work, urinalysis, and the US of the pelvis. We discussed getting a CT scan of your abdomen, but at present you would like to defer that. I would encourage you to return if the pain is worsening or not starting to remit over the coming few days, alternatively followup with your regular doctor on Monday. - Billing Disposition and Condition Condition: GOOD Disposition: Home - Attestation Statements Document Initiated by Esdrasibe: Yes Documenting Scribe: Terell Espino Provider For Whom Sindhu is Documenting (Include Credential): Nadir Ambrosio MD Scribe Attestation: ITerell, scribed for Nadir Ambrosio MD on 04/20/19 at 1923. Scribe Documentation Reviewed: Yes Provider Attestation: The documentation as recorded by the Terell diaz accurately reflects the service I personally performed and the decisions made by meNadir MD Status of Scribe Document: Viewed
[2019-04-20 02:14] LABS: Urine Appearance Clear; Urine Bilirubin Negative (Negative); Urine Blood 1+ (Negative); Urine Color Colorless; Urine Glucose Negative (Negative); Urine Ketones Negative (Negative); Urine Nitrite Negative (Negative); Urine Protein Negative (Negative); Urine Specific Gravity 1.002 (1.010-1.030); Urine Urobilinogen Negative (Negative)
[2019-04-20 02:16] LABS: Urine Bacteria Absent (Absent); Urine Red Blood Cell Absent (Absent); Urine White Blood Cell Absent (Absent)
[2019-04-20 03:23] VITALS: BP 140/92
[2019-04-22 13:49] LABS: Chlamydia trachomatis NAA Negative (Negative); Neisseria gonorrhoeae (GC) NAA Negative (Negative)
== END 2019-04-20 03:00 | disposition home or self-care (01) ==
LOC: ED 20:23
DX: R10.9 Unspecified abdominal pain (principal); F41.9 Anxiety disorder, unspecified; F43.10 Post-traumatic stress disorder, unspecified; F31.9 Bipolar disorder, unspecified; F17.210 Nicotine dependence, cigarettes, uncomplicated; Z98.51 Tubal ligation status
CPT/HCPCS: 36415; 76830; 80053; 81003; 81015; 83690; 84702; 85025; 86140; 87491; 87591; 96361; 96374; 96375; 99283; J2270; J2405